=== PATIENT | male | born 1940 | race Caucasian/White ===

== ENCOUNTER 2017-10-28 00:53 | Inpatient (IN) | payer MEDICARE, BC ==
[2017-10-28 01:43] LABS: #Eosinphils 0.1 thou/uL (0.0-0.7); #Lymphocytes 0.8 thou/uL (1.20-3.40); #Monocytes 0.4 thou/uL (0.11-0.59); #Neutrophils 4.2 thou/uL (1.40-6.50); %Basophils 0.5 % (0.0-1.0); %Eosinophils 1.3 % (0.0-10.0); %Monocytes 7.4 % (0.0-10.0); %Neutrophils 76.8 % (42.0-75.0); Hemoglobin 11.9 g/dL (14.0-18.0); Mean Corpuscular HGB CONC 31.2 g/dL (32.0-36.0); Mean Corpuscular Hemoglobin 30.2 pg (27.0-31.0); Mean Platelet Volume 6.9 fL (7.4-10.4); Platelet Count 245 thou/uL (130-400); RBC Distribution Width 13.9 % (11.5-14.5); Red Blood Cell (RBC) Count 3.95 mill/uL (4.70-6.10); White Blood Cell (WBC) Count 5.5 thou/uL (4.8-10.8)
[2017-10-28 01:55] LABS: ALT (SGPT) Less than 7 U/L (8-55); AST (SGOT) 19 U/L (5-34); Albumin 3.5 g/dL (3.4-4.8); Alkaline Phosphatase 56 U/L (40-150); Anion Gap 10 mmol/L (10-20); BUN (Urea Nitrogen) 33 mg/dL (8.4-25.7); Bilirubin, Total 0.3 mg/dL (0.2-1.2); Calc. Creatinine Clearance 0 mL/min (70-130); Calcium 9.4 mg/dL (7.8-10.44); Carbon Dioxide 31 mmol/L (23-31); Chloride 104 mmol/L (98-107); Estimated GFR-MDRD 78; Globulin 2.7 g/dL (2.4-3.5); Glucose 93 mg/dL (83-110); Lipase 18 U/L (8-78); Potassium 3.7 mmol/L (3.5-5.1); Protein, Total 6.2 g/dL (5.8-8.1); Sodium 141 mmol/L (136-145)
[2017-10-28 01:56] LABS: Bilirubin Small (Negative); Blood, Urine Negative (Negative); Clarity CLEAR (Clear); Glucose, Urine (Dipstick) Negative (Negative); Leukocyte Trace (Negative); Nitrite Negative (Negative); Protein, Urine (Dipstick) Trace mg/dL (Neg-Trace); Specific Gravity, Urine 1.029 (1.002-1.036); pH, Urine 5.5 (5.0-9.0)
[2017-10-28 01:59] LABS: Bacteria/HPF 1+ HPF (None Seen); Hyaline Casts/LPF 7-10 HYALINE CAST LPF (0-3 Hyaline); Pathc Cast-AUWi Flag 0.27 (0-2.49); RBC/HPF 0-3 HPF (0-3); Squamous Epithelial 0-3 HPF (0-3)
[2017-10-28] MEDS ORDERED: Ondansetron HCl/PF 4 MG/2 ML Vial ONE (02:40)
[2017-10-28] MEDS ORDERED: Fleet Enema 133 ML BOT PR SCH ×2 (03:30→06:00)
[2017-10-28] MEDS ORDERED: Morphine 4 MG/ML Carpuject ONE (03:56)
[2017-10-28] MEDS ORDERED: Ondansetron ODT 4 MG TAB SL PRN (04:14)
[2017-10-28] MEDS ORDERED: Ondansetron HCl/PF 4 MG/2 ML Vial IVP PRN ×2 (04:14→12:16)
[2017-10-28] MEDS ORDERED: D5 1/2 NS w/20 mEq KCL 1,000 ML IV SCH (04:15)
[2017-10-28 05:39] VITALS: BMI 23.1
[2017-10-28 06:00] LABS: Magnesium 2.5 mg/dL (1.6-2.6); Phosphorus 4.1 mg/dL (2.3-4.7)
--- NOTE | 2017-10-28 08:09 | CT ---
PRELIMINARY REPORT/[facility]/EMERGENCY AFTER HOURS PROCEDURE: Addendum created by Hemanth Paniagua MD on 10/28/2017 2:25 AM Central Time ([place] & [place]) THIS REPORT CONTAINS FINDINGS THAT MAY BE CRITICAL TO PATIENT CARE. The findings were verbally commun icated via telephone conference with Claudio Laguerre at 2:25 AM [employer] on 10/28/2017. The findings were acknowledged and understood. Initial Report created on 10/28/2017 2:19 AM Central Time ([place] & [place]) EXAM: CT Abdomen and Pelvis Without Intravenous Contrast EXAM DATE/TIME: Exam ordered 10/28/2017 1:46 AM CLINICAL HISTORY: 77 years old, male; Pain; Abdominal pain; Generalized TECHNIQUE: Axial computed tomography images of the abdomen and pelvis without intravenous contrast. Coronal reformatted images were created and reviewed. COMPARISON: No relevant prior studies available. FINDINGS: Lower thorax: There is subpleural atelectasis of the dependent portions of the lungs. ABDOMEN: Liver: Normal. Gallbladder and bile ducts: There is no evidence of biliary ductal dilation. No calcified stones. Pancreas: The pancreas is normal. No ductal dilation. Spleen: The spleen is normal. Adrenals: The adrenal glands are normal. Kidneys and ureters: The kidneys are normal. No obstructing stones. No hydronephrosis. Stomach and bowel: There is large air-filled sigmoid colon in the RIGHT upper quadrant with abrupt co llapse suspicious for sigmoid volvulus. There is marked colonic constipation. No small bowel obstruct ion although evaluation is limited without contrast. The stomach is normal. The duodenum is unremarka ble. No mucosal thickening. Appendix: No findings to suggest acute appendicitis. PELVIS: Bladder: The bladder is normal. No stones. Reproductive: Unremarkable as visualized. ABDOMEN and PELVIS: Intraperitoneal space: Normal. No free air. No significant fluid collection. Bones/joints: No acute fracture. No dislocation. Soft tissues: Normal. Vasculature: The vasculature demonstrates diffuse moderate atherosclerotic calcification. No abdomina l aortic aneurysm. Lymph nodes: Normal. No enlarged lymph nodes. IMPRESSION: 1. There is large air-filled sigmoid colon in the RIGHT upper quadrant with abrupt collapse suspiciou s for sigmoid volvulus. Comparison with prior images (not currently available) would be helpful. 2. There is marked colonic constipation. Thank you for allowing us to participate in the care of your patient. Dictated and Authenticated by: Hemanth Paniagua MD 10/28/2017 2:19 AM Central Time ([place] & [place]) FINAL REPORT EMERGENT AFTER HOURS CT ABDOMEN AND PELVIS WITHOUT CONTRAST: COMPARISON: 08/28/13. FINDINGS/IMPRESSION: I agree with the findings given in the preliminary report per [facility] physician. There is a prominent sigmoid colon. However, this is stable compared to prior examination and a sigm oid volvulus is not likely present. There is a large amount of stool in the colon, particularly in t he right colon, transverse colon, and proximal aspect of the left colon. POS: [facility]
--- NOTE | 2017-10-28 10:14 | RAD ---
TWO VIEWS OF THE ABDOMEN: COMPARISON: CT abdomen/pelvis 10/28/17. HISTORY: Constipation. Possible volvulus. FINDINGS: Supine and decubitus views of the abdomen show a moderate amount of stool in the right colon. There is an air fluid level within the sigmoid colon. There are a few other air fluid levels seen in the a bdomen. The small bowel loops are mildly distended and air filled in the abdomen on the supine view. No free air is seen on the decubitus view. IMPRESSION: Persistent moderate stool retention in the right colon. No free air or obvious obstruction is seen a t this time. POS: [facility]
--- NOTE | 2017-10-28 11:31 | HP ---
HISTORY OF PRESENT ILLNESS: Mr. Manuel Jane is a 77-year-old male patient who lives at home with ca regivers. His daughter lives in [place]. The patient has severe Parkinson's with mobility impaired with limited transfer ability requiring assistance. He is mentally sharp. 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 He is DNR. Patient exp erienced abdominal pain, presented in the emergency room, had a CAT scan of the abdomen and pelvis og ggesting changes of possible sigmoid volvulus. My review of the CAT scan reveals that this is a poss ibility, but cannot be completely ruled in or out. Patient reports having had a colon resection in t he past in which there was a twisting. After talking to Dr. Sharma, we talked to his daughter, it ma y have been that he had a right colectomy for cecal volvulus. Patient apparently had some sort of de compression at [facility] in July from below, suspect endoscopic lending want to anne pect he may have an intermittent sigmoid volvulus. Patient has had a PEG tube with a jejunal extensi on for administration of Parkinson's medications and when this did not function well, required evalua tion and laparoscopic assistance for removal. The patient was intubated postprocedural and upset wit iona Santiago, his surgeon such that he said he just left the place. He has received most of his care at [facility] in the past. Dr. Sharma has seen him and after receiving Enemas and rectal exam revealing absence of any significa nt rectal stool and noting abundant stool in his colon descending, he is undergoing endoscopic evalua tion to rule out obstruction. I have talked to him about the possibility of operation should he be f ound at endoscopy to have an obstruction and he is agreeable to laparoscopic or open resection and un derstands possibility of colostomy and understands possibility of postoperative intubation and ventil ation overnight, although I have told him we will minimize this. He understands the risks and benefi ts of the procedure. ALLERGIES: AMANTADINE, CLARITHROMYCIN. TOBACCO: None. ALCOHOL: None. MEDICATIONS: Vitamin E, MiraLax daily, multivitamins daily, melatonin at bedtime, eyedrops each eye at bedtime, aspirin 325 daily, finasteride 5 mg daily, carbidopa/levodopa, Vytorin ER 2 capsules p.o. t.i.d., spironolactone/hydrochlorothiazide daily. PAST MEDICAL HISTORY: Parkinson's, deaf in right ear, hypertension. PAST SURGICAL HISTORY: 1. Tonsillectomy. 2. Adenoidectomy. 3. Cholecystectomy. 4. He had a colon resection, right or left in the past for probably volvulus type problem. 5. Bilateral total knee replacement. 6. He has had a PEG tube extension requiring laparoscopic assisted removal due to complications and twisting. 7. Decompression, recently on July at [facility] for possible volvulus or obstruction of some sort, we do not have the records. REVIEW OF SYSTEMS: Ten point noncontributory except as noted above. PHYSICAL EXAMINATION: VITAL SIGNS: 70 kilograms, 97.5, 71, 18, 143/89. HEENT: Unremarkable. LUNGS: Clear to auscultation. CARDIAC: Regular rate and rhythm without murmur or gallop. ABDOMEN: Soft, slightly distended, tympanitic, but no guarding. EXTREMITIES: Unremarkable. LABORATORY DATA: White count 5, hemoglobin 11.9, sodium 141, BUN 33, creatinine 0.94. Liver functio n tests normal. ASSESSMENT AND PLAN: 1. Severe constipation, slight possibility of volvulus, although I think this is unlikely. We will obtain abdominal x-rays today and await Dr. Sharma finding on endoscopy. I have talked to him about being prepared for a colon resection, laparoscopic or open. We talked about postoperative ventilatio n if necessary, but I think that this be unlikely. Patient states that he wants to be a DNR, does no t want intubation or CPR. We will discuss that with nursing and order that. 2. Severe Parkinson's. 3. Right ear deafness. 4. Severe constipation.
[2017-10-28] MEDS ORDERED: Fentanyl 100 MCG/2 ML VIAL ONE (11:53)
[2017-10-28] MEDS ORDERED: Midazolam HCl 2 mg/2 ml Vial ONE (11:53)
[2017-10-28] MEDS: Sodium Chloride 0.9% 1,000 ML IV SCH ×2 (13:20→20:20)
[2017-10-28] MEDS: Polyethylene Glycol 3350 17 GM Packet PO SCH ×2 (15:17→20:18)
--- NOTE | 2017-10-28 15:55 | HP ---
DATE OF ADMISSION: 10/28/2017 TIME OF SERVICE: 0730 PRIMARY CARE PHYSICIAN: Dr. Carl Renee. CHIEF COMPLAINT: Abdominal pain. HISTORY OF PRESENT ILLNESS: Mr. Jane is a 77-year-old white male with history of Parkinson's diseas e, hypertension, dementia, BPH and GERD as well as coronary artery disease, diverticulosis, and hyper lipidemia who presented to the emergency department for yet another episode of abdominal pain. The patient has a history of sigmoid volvulus some 2 years ago that was surgically corrected. Since that time, he has had regular episodes of functional constipation and severe abdominal pain. He presented to the emergency department for evaluation of 2 days of abdominal pain. His last visit to the hospital was about 2-3 months ago at [facility]. At that time he had the same issue and was decompressed by Surgery [facility] Gastroenterology with a scope and did well. His last bowel movement he said was 2 days ago. He said he was passing gas overnight to some extent, but has had increasing pain over the last 2 days. No fevers or chills, no chest pain or shortness of breath, no nausea and vomiting. PAST MEDICAL HISTORY: 1. Parkinson's disease. 2. Hypertension. 3. Dementia, vascular. 4. BPH. 5. Chronic diarrhea. 6. Coronary artery disease. 7. Diverticulosis. 8. Bilateral lower extremity venous stasis. 9. Hyperlipidemia. 10. GERD. PAST SURGICAL HISTORY: 1. Partial colectomy 2-3 years ago. 2. Appendectomy in 2012. 3. Cholecystectomy in 2004. 4. Bilateral TKA in 2008. HOME MEDICATIONS: 1. Aldactazide 25/25 one p.o. daily. 2. Sucralfate his caregivers says he is not on anymore. 3. Pramipexole 0.125 mg p.o. t.i.d. 4. Donepezil 5 mg p.o. at bedtime. 5. Carbidopa/levodopa 50/200 two tablets p.o. t.i.d. 6. Finasteride 5 mg p.o. at bedtime. ALLERGIES: AMANTADINE, BIAXIN, IODINE CONTRAST and POLYSPORIN. FAMILY HISTORY: Negative for clotting or bleeding disorder, no immune dysfunction likely noncontribu tory in this 77-year-old. SOCIAL HISTORY: Negative for habits x3. He lives at home with a caregiver. REVIEW OF SYSTEMS: A 10-point review of systems was performed, negative for all other systems except as stated per HPI. Interestingly, when some woman's clothing was found in the room, presumably left from the last patient, the patient said that he was actually dressing like a woman these days. PHYSICAL EXAMINATION: VITAL SIGNS: Temperature on arrival 98.4, pulse 81, blood pressure 160/83, respiratory rate 18, satt ing 97% on room air. Vital signs now are unchanged. GENERAL: He is awake. He is alert. He is oriented x3. He is elderly frail looking white gentleman who appears to be in no acute distress. HEENT: Normocephalic, atraumatic. Pupils are equal, round, reactive to light bilaterally, mucous me mbranes moist. There are no visible lesions or thrush. NECK: Supple, with no lymphadenopathy, no JVD, no thyromegaly. He has a slightly delayed carotid up stroke. I do not appreciate bruits. LUNGS: Clear to auscultation bilaterally. Good air movement. Symmetrical chest excursion. He has no prolonged expiratory phase. No wheezes or rales. No retractions. CARDIOVASCULAR: He is regular. I hear a 2/6 systolic ejection murmur at the right sternal border. There are no diastolic murmurs. He has no rubs heard. ABDOMEN: Soft, slightly distended. He is nondistended. He has no rebound, rigidity, or guarding. He has normoactive bowel sounds present in all 4 quadrants. SKIN: Warm, moist and well perfused. He has no rashes, no lesions. He has palpable pulses in the d orsalis pedis and posterior tibial arteries bilaterally. NEUROLOGIC: Cranial nerves II-XII are grossly intact. He has no focal deficits. MUSCULOSKELETAL: Normal to inspection. Large joints appear uninflamed and no palpable effusions. LABORATORY DATA AND IMAGING DATA: 1. Sodium 141, potassium 3.7, chloride 104, bicarbonate 31, BUN 33, creatinine 0.94, calculated GFR is 178. Calcium 9.4, magnesium 2.5 and phosphorus of 4.1 with glucose of 93. 2. Lactic acid was normal at 0.5, lipase is 18. Urinalysis largely unremarkable. Does have some ba cteria and 11-20 white cells, but no symptoms. 3. Liver function is normal. 4. CBC showed white count of 5.5, hemoglobin 11.9, hematocrit 38.3, and platelet count is 221,000. 5. CT scan of the abdomen and pelvis showed sigmoid region colonic dilation and I could not exclude volvulus. There is a large amount of stool throughout the colon. ASSESSMENT AND PLAN: 1. Volvulus versus constipation. The patient was admitted for volvulus. General Surgery was initia lly called by the ER; however, Dr. Pal asked him to call Dr. Sharma to see if he could be reduced endoscopically first. Both are aware and are on the case. Since seen the patient and prior to this dictation, I did have a chance to speak with Dr. Sharma. He feels this is just a functional constipa tion. He had the same thing happening at [facility] [place] and decompression. He is going to tr y to get him decompressed this afternoon. 2. Parkinson's disease. Resume medications once not n.p.o. 3. Hypertension, controlled at present. Restart his medicines when he is not n.p.o. 4. Dementia, stable. 5. Benign prostatic hypertrophy. We will restart finasteride. 6. Chronic diarrhea. 7. Coronary artery disease without angina. 8. Diverticulosis without evidence of diverticulitis.
[2017-10-28] MEDS ORDERED: Propofol 200 MG/20 ML VIAL ONE (16:02)
--- NOTE | 2017-10-28 16:30 | CON ---
DATE OF CONSULTATION: 10/28/2017 HISTORY OF PRESENT ILLNESS: Mr. Jane is a 77-year-old gentleman who presented to the emergency room with complaints of abdominal pain with 2 days of constipation. His last bowel movement has been two days prior. In the emergency room, a CAT scan was performed which revealed impaction to the right c olon and some dilated sigmoid colon. The radiologist last night thought possibly there was some volv ulus. He has had two enemas the nurse reports have been productive and he states his pain is better. In talking with him and his daughter, it seems that he has had quite a few GI issues recently, all of which have been taken care of at [facility]. Two years ago, part of his colon removed at which t berenice he also has appendix removed for a twisted bowel. He is unclear if this was volvulus, he is uncl ear if this was the right or left side. Back in July, he had a PEG tube placed for delivery of on e of his Parkinson's medicines. Apparently, there were problems with this and he ultimately wanted t o remove, for some reason it could not be removed in the office. In the interim, he presented with w hat was felt to be sigmoid volvulus per his daughter and he had endoscopic decompression and under th at same anesthetic had his PEG tube removed. It is unclear if this was removed surgically. The gabby hter notes that he has had several episodes requiring endoscopic decompression. She is not sure if t hese were volvulus or just constipation, but she seems to think they have been volvulus. The most re cent was just a few weeks ago at [facility]. Presently, the patient is without pain. REVIEW OF SYSTEMS: Negative for chest pain, shortness of breath, vomiting, fever, bleeding, dyspnea on exertion. PAST MEDICAL HISTORY: Parkinson disease, hypertension. He has decreased hearing in the right ear. He has had a GI bleed in the past at this hospital, but he had a colonoscopy just before that therefo re colonoscopy was not repeated. PAST SURGICAL HISTORY: Colon resection in 2012, appendectomy in 2012. Cholecystectomy, he reports i n 2004. Orthopedic surgery, bilateral knees, PEG tube, multiple colon decompressions, most recently 2 weeks ago at [facility]. SOCIAL HISTORY: The patient lives at home with caretakers. ALLERGIES: BIAXIN, POLYSPORIN. Other allergies per the admission notes; AMANTADINE, IODINE CONTRAST , BACITRACIN. MEDICATIONS: Presently; normal saline at 110 an hour, Zofran p.r.n. HOME MEDICATIONS: , polyethylene glycol, multivitamin, melatonin, pantoprazole, aspirin, finast eride, carbidopa and Aldactazide. PHYSICAL EXAMINATION: VITAL SIGNS: Temperature is 97, pulse 71, blood pressure 143/89. GENERAL: The patient has slight tremor. He is alert and oriented to person, place, and time. He is in no distress. LUNGS: Clear. HEART: Regular rate and rhythm without clicks or murmurs. ABDOMEN: Soft and nontender. There is no rebound. There is no guarding. It is not real distended. RECTAL: Examination reveals nothing in the vault at this time. LABORATORY STUDIES: White count 5.5, hemoglobin 11.9, platelet count 245. Electrolytes are all norm al. BUN and creatinine are 33 and 0.94. Liver function tests are normal. Radiology films, CAT scan was reviewed with Radiology. They do not feel there was volvulus, they feel that there is some stoo l in the rectum, that there was distended sigmoid colon about 8 cm, and there was large fecal impacti on in the proximal, transverse, and right colon. ASSESSMENT: At this time, it is unclear if the patient has volvulus. He probably does not, but he h as had volvulus in the past according to the daughter and I think the better part of bowel would be t o decompress him. If there is no overt volvulus, my feeling is this is more of an issue with recurre nt constipation related to his Parkinson's medications. He is on minimal laxatives, just MiraLax at home. My recommendation would be for him to be started on enema, probably every other day and also D ulcolax daily. He can follow up with his primary physician and neurologist at [facility]. We timothy nj perform with a sigmoidoscopy today and make sure it is not volvulus. If there is, we will consult General Surgery for definitive therapy after he is decompressed. These issues and plan discussed wit h patient and his daughter. His daughter is in [place], this was done over the phone.
--- NOTE | 2017-10-28 18:49 | OP ---
PROCEDURE PERFORMED: Flexible sigmoidoscopy. ANESTHESIA: TIVA. PREPROCEDURE DIAGNOSES: 1. Obstipation with distended sigmoid colon, questionable prior history of volvulus. 2. Prior history of surgical resections. POSTPROCEDURE DIAGNOSES: 1. Anastomosis in the superior rectum with descending colon patent. 2. Colon about 10 cm above this is normal and then above that is distended with air and gas and stoo l, no signs of volvulus. RECOMMENDATIONS: 1. Daily laxatives with MiraLax and Senokot and daily to every other day enemas. 2. If patient continues to have problems with constipation, strong consideration should be given to discontinuing or decreasing his parkinsonian medications. PROCEDURE IN DETAIL: After the patient was informed of the risks, benefits, possible complications o f endoscopy including perforation, bleeding, reactions to medication and aspiration, informed consent was obtained from the patient's daughter via the phone. The patient brought to endoscopy suite wher e he was sedated. A digital exam was normal. The rectum was empty. The endoscope was advanced to t he proximal rectum with anastomosis the colon above it, this was a healthy anastomosis. The scope wa s already advanced beyond this into a normal diameter of colon for about 5-10 cm, then above this, th e colon was dilated with air, gas and stool. There were no signs of twisting mucosa or volvulus. Th e scope was then removed after desufflating and the patient brought to recovery room in stable condit ion.
[2017-10-28] MEDS: Senokot S 8.6-50 MG TAB PO SCH (20:18)
[2017-10-28] MEDS: Famotidine/PF 20 mg/2ml Vial SLOW IVP SCH (20:18)
[2017-10-28] MEDS ORDERED: Latanoprost 0.005% Ophth Soln 2.5 ml Bottle EA EYE SCH (21:00)
[2017-10-29 05:46] LABS: Magnesium 2.1 mg/dL (1.6-2.6); Phosphorus 3.3 mg/dL (2.3-4.7)
[2017-10-29] MEDS: Sodium Chloride 0.9% 1,000 ML IV SCH (08:40)
[2017-10-29] MEDS ORDERED: Fleet Enema 133 ML BOT PR SCH (09:00)
[2017-10-29] MEDS: Polyethylene Glycol 3350 17 GM Packet PO SCH ×2 (10:03→15:16)
[2017-10-29] MEDS: Famotidine/PF 20 mg/2ml Vial SLOW IVP SCH (10:03)
[2017-10-29] MEDS: Senokot S 8.6-50 MG TAB PO SCH (10:03)
[2017-10-29] MEDS ORDERED: cefTRIAXone\\ROCEPHIN 1 GM in Sodium Chloride 0.9% 100 ML IVPB SCH (10:45)
--- NOTE | 2017-10-29 11:06 | PRG ---
DATE OF SERVICE: 10/29/2017 Mr. Jane feels better today. He has no abdominal pain. He underwent a sigmoidoscopy yesterday with no signs of volvulus. He is passing gas, he had a small bowel movement, he is eating, no nausea, no pain. PHYSICAL EXAMINATION: VITAL SIGNS: Temperature is 97, pulse 72, blood pressure 152/83. ABDOMEN: Soft, slightly protuberant, but nontender. No hernias noted. Bowel sounds positive. LABORATORY: None today. ASSESSMENT: Chronic obstipation with history of possible volvulus recurrent in the past at [facility]. He had a sigmoid resection seemingly by the anatomy at the time of sigmoidoscopy yesterday. At the time of his endoscopy, there was no volvulus. There was copious amounts of stool in the righ t colon. There was some distention of the sigmoid colon. The anastomosis was without stricturing, b ut the lumen above the anastomosis about 5 cm was decompressed. I think this is more of a motility i ssue, although I do not have his records from [facility] or previous films to evaluate. RECOMMENDATIONS: Senokot b.i.d., MiraLax b.i.d. and enema every other day. If he truly were to be h aving recurrent volvulus or presents here with a true volvulus, it may be that he had not enough sigm oid colon resected, although I would really try to manage this medically rather than more surgery in light of his advanced age, Parkinson's and other comorbidities.
[2017-10-29 11:13] LABS: Anion Gap 12 mmol/L (10-20); BUN (Urea Nitrogen) 15 mg/dL (8.4-25.7); Calc. Creatinine Clearance 76 mL/min (70-130); Calcium 8.1 mg/dL (7.8-10.44); Carbon Dioxide 25 mmol/L (23-31); Chloride 106 mmol/L (98-107); Estimated GFR-MDRD Greater than 90; Glucose 141 mg/dL (83-110); Potassium 3.6 mmol/L (3.5-5.1); Sodium 139 mmol/L (136-145)
[2017-10-29 11:19] LABS: Troponin I 0.018 ng/mL (< 0.028)
[2017-10-29] MEDS ORDERED: cefTRIAXone\\ROCEPHIN 1 GM, Syringe 0.4 ML in Sterile Water 9.6 ML SLOW IVP SCH (12:00)
--- NOTE | 2017-10-29 14:31 | RAD ---
TWO VIEW ABDOMEN: TECHNIQUE: Supine and left decubitus views obtained. HISTORY: Abdominal pain. COMPARISON: Comparison is made to recent abdominal films of 10/28/17. FINDINGS: Prominent stool is seen in the right colon and transverse colon. There continues to be a significantly dilated gas-filled loop of sigmoid colon in the lower abdomen w hich does not appear significantly changed from yesterday's CT dated 10/28/17. No free air identified on the left decubitus view. IMPRESSION: No significant change in the bowel gas pattern when compared to yesterday's CT scan. POS: [facility]
[2017-10-29 17:15] VITALS: BP 146/85; TEMP 98.6
[2017-10-30] MEDS ORDERED: Saccharomyces boulardii 250 MG CAP PO SCH (09:00)
--- NOTE | 2017-10-30 10:10 | DIS ---
DATE OF DISCHARGE: 10/29/2017 DISCHARGE DISPOSITION: Home with caregivers. ALLERGIES: Patient is allergic to BACITRACIN, POLYMYXIN, IV DYE, CLARITHROMYCIN, AMANTADINE. INPATIENT CONSULTANTS: General surgery, Dr. Pal; Gastroenterology, Dr. Sharma. FOLLOWUP: Follow up with primary care physician, Dr. Carl Renee in 1 week. Follow up at [facility] in 2 weeks. The patient was seen and examined on the day of discharge, denies any new complaints. Abdominal pain is resolving. VITAL SIGNS: His vital signs on the day of discharge showed temperature 98.6 with a pulse rate of 85 , blood pressure 137/87, respiration of 16, O2 saturation 96% on room air. GENERAL: Patient in no apparent distress. LUNGS: Essentially clear to auscultation bilaterally. HEART: S1, S2 present. ABDOMEN: Soft, mild generalized tenderness. Bowel sounds are present. His abdominal tenderness has significantly improved. SIGNIFICANT LABORATORY: 1. CBC showed WBC 5.5 with hemoglobin 11.9, hematocrit 38.3, platelet 245. Chemistries showed sodiu m of 139, potassium 3.6, chloride 106, bicarbonate 25, BUN 15, creatinine of 0.79. His BUN on admiss ion was 33. 2. Troponins were negative. LFTs in normal range. Magnesium, phosphorus in normal range. 3. Urinalysis showed 11-20 WBCs with 1+ bacteria. Urine culture showed E. coli sensitivity positive to Bactrim. 4. CT scan of the abdomen and pelvis on admission showed large air filled sigmoid colon in the right upper quadrant with abrupt collapse suspicious for sigmoid volvulus with marked colonic constipation . KUB on the day of discharge was negative for significant change. INPATIENT PROCEDURES: On 10/28/2017 the patient underwent flexible sigmoidoscopy that was consistent with normal colon above the anastomosis in the superior rectum with descending colon patent. About this, there was distended with air and gas and stool without any sign of volvulus. Daily laxative wi th MiraLax and Senokot with every other day enema was recommended. BRIEF HOSPITAL COURSE: The patient is a 77-year-old male with Parkinson disease who presented to the hospital with abdominal pain. Please refer to the history and physical dated 10/28/2017 for further details. The patient was admitted to the hospital with the diagnosis of abdominal discomfort, probably seconda ry to severe constipation with possible volvulus. A flexible sigmoidoscopy was performed by Dr. Jenny alexandra that was negative for volvulus. His colonic distention is probably secondary to severe constipati on. He was started on enemas along with MiraLax and Senokot. His abdominal pain has improved. The patient was evaluated by Gastroenterology, Dr. Sharma today. Dr. Sharma his recommended the patient to be discharged and a bowel regimen with Senokot and MiraLax twice a day with enema every other day was recommended. He was advised to follow up with GI Clinic as outpatient. The plan of care was dis cussed with the patient and the family in detail, they stated understanding. FINAL DIAGNOSES: 1. Abdominal discomfort secondary to severe constipation. Volvulus ruled out. 2. Parkinson disease. If his problem continues, his Parkinson medication needs to be adjusted per G I. Primary care physician is advised to follow. 3. Hypertension. 4. Dementia. 5. Benign prostatic hypertrophy. 6. Chronic diarrhea. 7. Coronary artery disease. 8. Diverticulosis. DISCHARGE MEDICATIONS: 1. Bactrim 1 tablet b.i.d. #10 (new medication for UTI). Other home medications were resumed incl uding aspirin 325 mg daily, carbidopa/levodopa 36.25 2 capsules 3 times a day. 2. Finasteride 5 mg daily. 3. Latanoprost 1 drop in each eye at bedtime. 4. Melatonin 4 mg at bedtime. 5. Multivitamin 1 tablet daily. 6. MiraLax twice a day. 7. Senokot-S 2 tablets twice a day. 8. Fleet enema every other day. 9. Spironolactone/hydrochlorothiazide 25/25 one tablet daily. 10. Vitamin E 400 units daily. Total time coordinating the discharge of this patient was 37 minutes.
--- NOTE | 2017-10-30 23:39 | EKG ---
Test Reason : Blood Pressure : / mmHG Vent. 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
== END 2017-10-29 18:37 | disposition home or self-care (01) | DRG 392 ==
LOC: ERS 00:53 → T4-B 02:49
PROVIDERS: ADMIT Internal Medicine; ATTEND Internal Medicine
PROC: 0DJD8ZZ Inspection of Lower Intestinal Tract, Via Natural or Artificial Opening Endoscopic (ICD-10-PCS; principal; 2017-10-28)
DX: K59.04 Chronic idiopathic constipation (principal); G20 Parkinson's disease; F03.90 Unspecified dementia, unspecified severity, without behavioral disturbance, psychotic disturbance, mood disturbance, and anxiety; I10 Essential (primary) hypertension; N40.0 Benign prostatic hyperplasia without lower urinary tract symptoms; K21.9 Gastro-esophageal reflux disease without esophagitis; I25.10 Atherosclerotic heart disease of native coronary artery without angina pectoris; K57.90 Diverticulosis of intestine, part unspecified, without perforation or abscess without bleeding; E78.5 Hyperlipidemia, unspecified; K52.9 Noninfective gastroenteritis and colitis, unspecified; Z90.49 Acquired absence of other specified parts of digestive tract; Z88.8 Allergy status to other drugs, medicaments and biological substances; Z91.041 Radiographic dye allergy status; Z66 Do not resuscitate; Z96.653 Presence of artificial knee joint, bilateral; T50.995A Adverse effect of other drugs, medicaments and biological substances, initial encounter
CPT/HCPCS: 36415; 74019; 74176; 80048; 80053; 81003; 81015; 83605; 83690; 83735; 84100; 84484; 85025; 87077; 87086; 87186; 93005; 93010; 96361; 96374; 96375; A4216; J0696; J2250; J2270; J2405; J2704; J3010; S0028

== ENCOUNTER 2017-11-21 00:26 | Inpatient (IN) | payer MEDICARE, BC ==
[2017-11-21] MEDS ORDERED: Benzocaine 20% Spray 60 ML CAN ONE (01:25)
[2017-11-21 02:15] LABS: #Lymphocytes 0.5 thou/uL (1.20-3.40); #Monocytes 0.4 thou/uL (0.11-0.59); #Neutrophils 9.9 thou/uL (1.40-6.50); %Basophils 0.1 % (0.0-1.0); %Eosinophils 0.1 % (0.0-10.0); %Lymphocytes 4.4 % (21.0-51.0); %Monocytes 3.7 % (0.0-10.0); %Neutrophils 91.7 % (42.0-75.0); Hemoglobin 14.9 g/dL (14.0-18.0); Mean Corpuscular HGB CONC 32.3 g/dL (32.0-36.0); Mean Corpuscular Hemoglobin 30.4 pg (27.0-31.0); Mean Platelet Volume 7.7 fL (7.4-10.4); Platelet Count 297 thou/uL (130-400); RBC Distribution Width 13.6 % (11.5-14.5); White Blood Cell (WBC) Count 10.8 thou/uL (4.8-10.8)
[2017-11-21 02:29] LABS: ALT (SGPT) Less than 7 U/L (8-55); AST (SGOT) 23 U/L (5-34); Albumin 4.1 g/dL (3.4-4.8); Alkaline Phosphatase 73 U/L (40-150); Anion Gap 17 mmol/L (10-20); BUN (Urea Nitrogen) 37 mg/dL (8.4-25.7); Bilirubin, Total 0.4 mg/dL (0.2-1.2); Calc. Creatinine Clearance 0 mL/min (70-130); Calcium 10.8 mg/dL (7.8-10.44); Carbon Dioxide 27 mmol/L (23-31); Chloride 98 mmol/L (98-107); Estimated GFR-MDRD 62; Globulin 3.4 g/dL (2.4-3.5); Glucose 152 mg/dL (83-110); Lipase 27 U/L (8-78); Potassium 4.3 mmol/L (3.5-5.1); Protein, Total 7.5 g/dL (5.8-8.1); Sodium 138 mmol/L (136-145)
[2017-11-21] MEDS ORDERED: Fentanyl 100 MCG/2 ML VIAL ONE ×2 (02:36→03:20)
[2017-11-21] MEDS ORDERED: Ondansetron HCl/PF 4 MG/2 ML Vial ONE (02:36)
[2017-11-21] MEDS ORDERED: Lidocaine Viscous Sol 2% 15 ml UD Cup ONE (03:00)
[2017-11-21 05:17] VITALS: BMI 24.7
[2017-11-21] MEDS ORDERED: Ondansetron HCl/PF 4 MG/2 ML Vial IVP PRN ×2 (05:17→10:21)
[2017-11-21] MEDS ORDERED: Sodium Chloride 0.9% 1,000 ML IV SCH (05:17)
[2017-11-21] MEDS ORDERED: Ondansetron ODT 4 MG TAB SL PRN (05:17)
[2017-11-21] MEDS ORDERED: Acetaminophen 325 MG TAB PO PRN (05:17)
[2017-11-21] MEDS ORDERED: Prevnar 13-Val Conj/PF 0.5 ML SYRINGE IM ONE (06:45)
[2017-11-21] MEDS ORDERED: FLU VACC TS2017-18 (>65YR) 0.5 ML SYRINGE IM ONE (06:45)
--- NOTE | 2017-11-21 07:47 | CT ---
PRELIMINARY REPORT/[facility]/EMERGENCY AFTER HOURS PROCEDURE: EXAM: CT Abdomen and Pelvis Without Intravenous Contrast EXAM DATE/TIME: Exam ordered 11/21/2017 2:01 AM CLINICAL HISTORY: 77 years old, male; Pain; Abdominal pain; Generalized; Prior surgery; Patient HX: Patient is a 77 yea r old male with parkinson's disease with recent hospitalization for severe constipation who presents with abdominal pain. He has a past history of partial colectomy for cecal volvulus. TECHNIQUE: Axial computed tomography images of the abdomen and pelvis without intravenous contrast. Coronal reformatted images were created and reviewed. COMPARISON: CT Abdomen Pelvis WO Con 2017-10-28 01:46 FINDINGS: Lower thorax: No acute findings. ABDOMEN: Liver: The liver is within normal limits for this noncontrast study. Gallbladder and bile ducts: There has been a cholecystectomy. No ductal dilation. Pancreas: The pancreas appears normal. No ductal dilation. Spleen: The spleen is normal. Adrenals: Normal. No mass. Kidneys and ureters: The kidneys appear normal. No obstructing stones. No hydronephrosis. Stomach and bowel: There is dilatation of the small bowel up to 5.6 cm with abrupt collapse in the mi d abdomen (series 2, image 52) consistent with high grade small bowel obstruction, increased from isidro or. There is moderate colonic constipation. Patient is post partial colonic resection. The stomach is decompressed. Appendix: No findings to suggest acute appendicitis. PELVIS: Bladder: The bladder is normal. No stones. Reproductive: The prostate gland and seminal vesicles are normal. ABDOMEN and PELVIS: Intraperitoneal space: Normal. No free air. No significant fluid collection. Bones/joints: No acute fracture. No dislocation. Soft tissues: Normal. Vasculature: Normal. No abdominal aortic aneurysm. Lymph nodes: Normal. No enlarged lymph nodes. Tubes, lines and devices: A nasogastric tube lies with its tip in the stomach. IMPRESSION: There is marked dilatation of the small bowel up to 5.6 cm with abrupt collapse in the mid abdomen co nsistent with high grade small bowel obstruction, increased from prior. Thank you for allowing us to participate in the care of your patient. Dictated and Authenticated by: Hemanth Paniagua MD 11/21/2017 2:20 AM Central Time ([place] & [place]) FINAL REPORT CT ABDOMEN AND PELVIS WITHOUT CONTRAST: Date: 11/21/17 FINDINGS/IMPRESSION: I agree with the preliminary report given by Dr. Hemanth Paniagua of [facility]. POS: [facility]
--- NOTE | 2017-11-21 08:30 | RAD ---
ABDOMEN ONE VIEW: History: Abdominal pain. Comparison: Earlier exam, same day. FINDINGS: Marked gaseous distension of the abdomen is again noted. Interval placement of an NG tube is within t he fundus of the stomach. IMPRESSION: Placement of an NG tube with the tip in the fundus of the stomach. POS: [facility]
--- NOTE | 2017-11-21 08:32 | RAD ---
CHEST ONE VIEW: History: Abdominal pain, dyspnea. Comparison: 07-24-15 FINDINGS: Cardiac silhouette is magnified by projection. Pulmonary vasculature is upper limits of normal and ac centuated by shallow inspiration. Mediastinum is midline with aortic calcifications. Nasogastric tube is coiled within the stomach. No evidence of pneumothorax. There is gaseous distention of bowel with in the partially visualized upper abdomen. Destructive changes of the right humeral head have develop ed since the previous exam. IMPRESSION: 1. Borderline pulmonary vascular congestion. 2. Nasogastric tube is good radiographic position. 3. Destructive, probably arthritic changes of the right humeral head. POS: [facility]
--- NOTE | 2017-11-21 08:39 | RAD ---
ABDOMEN ONE VIEW: History: Abdomen pain. Comparison: 11-17-11 FINDINGS: There is marked gaseous distention of the small bowel up to 5 cm. Some stool is apparent within the r ight upper quadrant, although gas is not reliably demonstrated in the colon. Eggshell calcification projecting over the left mid abdomen could be vascular in origin or represent bowel content. IMPRESSION: Gaseous distention of the small bowel. Obstruction must be considered. POS: [facility]
--- NOTE | 2017-11-21 08:49 | RAD ---
CHEST 1 VIEW AND ABDOMEN 2 VIEWS: Date: 11/21/17 HISTORY: Small bowel obstruction. FINDINGS: The heart size is normal. There are mild infiltrates versus atelectatic changes at the lung bases. A nasogastric tube is present in the stomach. No free air is seen. The small bowel loops are dilated wi th differential air fluid levels. IMPRESSION: Findings are consistent with small bowel obstruction. POS: [facility]
[2017-11-21] MEDS ORDERED: Dextrose 5% in Water 1,000 ML IV PRN (10:21)
[2017-11-21] MEDS ORDERED: Dextrose 50% Abboject 50 ML SYRINGE SLOW IVP PRN (10:21)
[2017-11-21] MEDS ORDERED: Ondansetron ODT 4 MG TAB PO PRN (10:21)
[2017-11-21] MEDS ORDERED: hydrALAZINE 20 MG/ML VIAL SLOW IVP PRN (10:21)
[2017-11-21] MEDS: Lactated Ringer's 1,000 ML IV SCH ×2 (11:58→20:01)
--- NOTE | 2017-11-21 14:49 | HP ---
HISTORY OF PRESENT ILLNESS: Mr. Manuel Jane is a 77-year-old male who lives at home with sitters. Patient's daughter lives in [place]. Patient is a retired adjunct professor and guidance counselor . He has sitters at home to help him day and night. He has severe Parkinson's and dementia. He his torically does not do well in the hospital. He is a DNR status. This is the patient's third admissi on since July for abdominal distention. Recent admission, patient had distention and CAT scans go ggest a volvulus. Further evaluation; however, revealed this not be true. Dr. Sharma performed a fl exible sigmoidoscopy and there was no evidence of a volvulus, just distended colon. Patient has had a laparoscopic sigmoid colon resection for a sigmoid volvulus in the past. It is recommended by [facility] roenterology last hospitalization that his progress with medication should be addressed. It was thou ght this might be causing his decrease colonic and small-bowel transit. The patient apparently had b een doing well at home until yesterday when he developed acute nausea, vomiting and distention. He w as brought to the emergency room and in the emergency room he underwent a CAT scan of the abdomen and pelvis revealing significant stool in the colon and in addition, markedly distended small bowel loop s with distal decompression consistent with a partial obstruction or complete obstruction. The patie nt had repeat abdominal x-rays plain films this morning revealing the same. On admission, his white count is 10 and hemoglobin 14. Basic metabolic profile essentially normal with mild elevation of his BUN, but creatinine is 1.14, glucose 152 and calcium 10.8. ALLERGIES: AMANTADINE, CLARITHROMYCIN, BIAXIN, IODINE CONTRAST and POLYSPORIN. TOBACCO: None. ALCOHOL: None. MEDICATIONS AT HOME: Carbidopa and levodopa 2 capsules t.i.d., aspirin 325 mg daily, melatonin 4 mg at bedtime, latanoprost eyedrops 0.05% each eye at bedtime, finasteride 5 mg a day, Fleet Enema p.r.n ., docusate 2 tablets b.i.d., MiraLax b.i.d., multivitamins daily, vitamin E 400 units daily and [place] ctazide 1 tablet p.o. daily. PAST MEDICAL HISTORY: Parkinson disease, dementia. He has trouble with sundowning in the past, hype rtension, BPH, stable coronary artery disease, diverticulosis, chronic venous stasis, hyperlipidemia and GERD. PAST SURGICAL HISTORY: Laparoscopic sigmoid colon resection 3 years ago for sigmoid volvulus, append ectomy, cholecystectomy and bilateral total knee replacement in 2008. PHYSICAL EXAMINATION: VITAL SIGNS: Temperature 97.6, heart rate 91, respirations 20 and 96% saturation. HEENT: Unremarkable. NG tube in place. LYMPH: Neck, groins, axilla without masses. LUNGS: Clear to auscultation. CARDIAC: Regular rate and rhythm without murmur or gallop. ABDOMEN: Soft, distended and nontender. No bowel sounds. EXTREMITIES: Unremarkable. LABORATORY AND IMAGING DATA: White count 10, hemoglobin 14. Comprehensive metabolic profile unremar kable. Total x-ray as noted above. CAT scan as described above. ASSESSMENT AND PLAN: 1. Acute onset of nausea and vomiting yesterday. The patient has had 120 mL of feculent smelling ou tput from his NG tube overnight. He went down for abdominal x-rays today and upon returning, he had an episode of emesis. NG tube was hooked back to suction and had 250 mL out. Patient is somnolent t his morning, sleepy, but does respond to voice and follows commands. Patient is a DNR. I have spoke n per telephone with his daughter. She will be here this weekend to visit him. Situation was explai vi to the daughter. She reminds us that this is the third episode requiring admission for abdominal distention since July. I have informed her that the last admission seemed to be more of a coloni c ileus with this episode. CAT scan suggests a transition point in the small bowel. This may be a b owel obstruction, although he does not have any active bowel sounds, which might be more consistent w ith an ileus. At this point, patient has had problems leaving his NG tube overnight and a sitter at his side was not engaged enough to assure the NG tube would not be removed and soft restraints were i n place. Today, sitter is Sarah, who has been with the patient for many years and is engaged and has talked to the patient and soft restraints have been removed and so far the patient has not tried to remove his NG tube. I spoke with the patient's daughter and she is agreeable to use soft restrain ts at night; however, he seems to have the most problems with confusion related to his dementia. Justin n at this time is to repeat abdominal x-rays and labs tomorrow, small bowel follow through tomorrow. Should the patient require operation for bowel obstruction, the patient's daughter is opened for dis cussions to intervene to help his quality of life if necessary. 2. Parkinson's. 3. Benign prostatic hypertrophy. 4. Dementia. 5. Prior operations for cholecystectomy, appendectomy, laparoscopic sigmoid resection for volvulus t hree years ago. Patient had a feeding tube in place into the small bowel and there was difficulty re moving requiring an operation at Dr. Jack Larson. The patient has expressed dissatisfactio n with care there and with feeding tube and stent.
[2017-11-21] MEDS: Acetaminophen 1,000 MG in Premix Bag 1 BAG IVPB PRN (17:49)
[2017-11-21] MEDS: Famotidine/PF 20 mg/2ml Vial SLOW IVP SCH (20:01)
[2017-11-21] MEDS: Enoxaparin Sodium 40 MG/0.4 ML SYRINGE SC SCH (20:01)
[2017-11-22 06:04] LABS: #Lymphocytes 0.7 thou/uL (1.20-3.40); #Monocytes 0.3 thou/uL (0.11-0.59); #Neutrophils 2.6 thou/uL (1.40-6.50); %Basophils 0.1 % (0.0-1.0); %Eosinophils 0.5 % (0.0-10.0); %Lymphocytes 18.2 % (21.0-51.0); %Monocytes 8.2 % (0.0-10.0); %Neutrophils 72.9 % (42.0-75.0); Hemoglobin 12.2 g/dL (14.0-18.0); Mean Corpuscular HGB CONC 31.8 g/dL (32.0-36.0); Mean Corpuscular Hemoglobin 29.8 pg (27.0-31.0); Mean Corpuscular Volume 93.7 fl (80.0-94.0); Mean Platelet Volume 7.8 fL (7.4-10.4); Platelet Count 249 thou/uL (130-400); RBC Distribution Width 13.8 % (11.5-14.5); Red Blood Cell (RBC) Count 4.09 mill/uL (4.70-6.10); White Blood Cell (WBC) Count 3.6 thou/uL (4.8-10.8)
[2017-11-22 06:30] LABS: ALT (SGPT) Less than 7 U/L (8-55); AST (SGOT) 18 U/L (5-34); Albumin 3.2 g/dL (3.4-4.8); Alkaline Phosphatase 44 U/L (40-150); Anion Gap 12 mmol/L (10-20); BUN (Urea Nitrogen) 64 mg/dL (8.4-25.7); Bilirubin, Total 0.5 mg/dL (0.2-1.2); Calc. Creatinine Clearance 36 mL/min (70-130); Calcium 9.4 mg/dL (7.8-10.44); Carbon Dioxide 31 mmol/L (23-31); Chloride 100 mmol/L (98-107); Estimated GFR-MDRD 40; Globulin 2.7 g/dL (2.4-3.5); Glucose 103 mg/dL (83-110); Protein, Total 5.9 g/dL (5.8-8.1); Sodium 139 mmol/L (136-145)
[2017-11-22] MEDS: Acetaminophen 1,000 MG in Premix Bag 1 BAG IVPB PRN (06:44)
[2017-11-22] MEDS: Lactated Ringer's 1,000 ML IV SCH ×3 (06:45→20:31)
--- NOTE | 2017-11-22 09:31 | RAD ---
2 VIEWS ABDOMEN: Date: 11/22/17 HISTORY: Small bowel obstruction. FINDINGS: Supine and upright views of abdomen obtained. Comparison made to previous exam from 11/21/17. Images demonstrate nasogastric tube again in place. There continue to be abnormally dilated loops of small bowel with air fluid levels compatible with eden wel obstruction or ileus. No evidence of large pockets of free intraperitoneal air seen. IMPRESSION: Continued small bowel dilatation with air fluid levels compatible with bowel obstruction. POS: [facility]
[2017-11-22] MEDS: Famotidine/PF 20 mg/2ml Vial SLOW IVP SCH ×2 (09:39→21:45)
--- NOTE | 2017-11-22 10:34 | PDOC.GSPN ---
Surgery Progress Note: Subj - Subjective Narrative: No complaints today. SBFT ordered but there is question of PO and IV contrast allergy. Patient is unsure of when and how he had reaction. Radiology found that he had oral contrast several years ago without issue. Surgery Progress Note: Obj - Vital signs Vital signs: Vital Signs - Most Recent Temp Pulse Resp BP Pulse Ox 98.4 F 76 18 111/64 97 11/22/17 08:00 11/22/17 08:00 11/22/17 08:00 11/22/17 08:00 11/22/17 08:00 - Physical Exam General: no distress Respiratory: clear to auscultation Abdomen: soft, non tender, positive bowel sounds, distended Surgery Progress Note: Results - Labs Result Diagrams: 11/22/17 05:26 11/22/17 05:26 Lab results: Laboratory Results - last 24 hr 11/22/17 11/22/17 05:26 05:26 WBC 3.6 L RBC 4.09 L Hgb 12.2 L Hct 38.3 L MCV 93.7 MCH 29.8 MCHC 31.8 L RDW 13.8 Plt Count 249 MPV 7.8 Neutrophils % 72.9 Lymphocytes % 18.2 L Monocytes % 8.2 Eosinophils % 0.5 Basophils % 0.1 Neutrophils # 2.6 Lymphocytes # 0.7 L Monocytes # 0.3 Eosinophils # 0.0 Basophils # 0.0 Sodium 139 Potassium 4.0 Chloride 100 Carbon Dioxide 31 Anion Gap 12 BUN 64 H Creatinine 1.69 H Estimated GFR (MDRD) 40 Glucose 103 Calcium 9.4 Total Bilirubin 0.5 AST 18 ALT Less than 7 L Alkaline Phosphatase 44 Serum Total Protein 5.9 Albumin 3.2 L Globulin 2.7 Albumin/Globulin Ratio 1.2 Surgery Progress Note: A/P - Problem (1) Small bowel obstruction Current Visit: Yes Code(s): K56.609 - UNSP INTESTNL OBST, UNSP TO PARTIAL VERSUS COMPLETE OBST Status: Acute - Plan Plan: Plan SBFT today. He has bowel sounds and had bowel movement
[2017-11-22] MEDS ORDERED: Ziprasidone 20 MG VIAL ONE (17:20)
[2017-11-22] MEDS ORDERED: Sterile Water 10 ML ONE ×2 (17:20→21:43)
[2017-11-22] MEDS ORDERED: Sterile Water 10 ML VIAL FS PRN (18:08)
[2017-11-22] MEDS: Enoxaparin Sodium 40 MG/0.4 ML SYRINGE SC SCH (21:45)
[2017-11-22] MEDS: Ketorolac Tromethamine 30 MG/ML VIAL IVP PRN (21:45)
[2017-11-22] MEDS: Ziprasidone 20 MG VIAL IM PRN (21:46)
--- NOTE | 2017-11-22 22:24 | RAD ---
SMALL BOWEL STUDY: 11/22/17 HISTORY: Small bowel obstruction. FINDINGS: There are multiple dilated loops of small bowel as noted on the CT exam on 11/21/15. There is slow pro gression of contrast through the multiple dilated loops of small bowel. Contrast visualized within th e proximal ascending colon on the 8 hour delayed image. Contrast is seen within the urinary bladder related to prior contrasted study. There is a lucent centered calcification overlying the left lower quadrant probably related to phlebo liths. Surgical clips overlie the right upper quadrant. Nasogastric tube is noted in place which is coiled within the stomach. Tip in the region of the proxi mal body of the stomach. IMPRESSION: Findings suggestive of either a ileus or partial small bowel obstruction. Contrast is visualized with in the colon on the 8 hour delayed image. There is no evidence of a complete small bowel obstruction. POS: [facility]
[2017-11-23] MEDS ORDERED: Sterile Water 10 ML ONE ×2 (01:59→06:02)
[2017-11-23] MEDS: Ziprasidone 20 MG VIAL IM PRN ×3 (02:07→20:41)
[2017-11-23] MEDS: Lactated Ringer's 1,000 ML IV SCH ×3 (06:25→20:50)
[2017-11-23] MEDS: Famotidine/PF 20 mg/2ml Vial SLOW IVP SCH ×2 (08:58→20:21)
--- NOTE | 2017-11-23 10:14 | PDOC.GSPN ---
Surgery Progress Note: Subj - Subjective Patient reports: no new complaints, bowel movement, flatus Narrative: SBFT shows contrast in colon at 8 hours Surgery Progress Note: Obj - Vital signs Vital signs: Vital Signs - Most Recent Temp Pulse Resp BP Pulse Ox 98.6 F 78 18 144/80 H 95 11/23/17 08:00 11/23/17 08:00 11/23/17 08:00 11/23/17 08:00 11/23/17 08:00 - Physical Exam General: no distress Respiratory: clear to auscultation Abdomen: soft, distended (but active bowel sounds) Surgery Progress Note: Results - Labs Result Diagrams: 11/22/17 05:26 11/22/17 05:26 Surgery Progress Note: A/P - Problem (1) Small bowel obstruction Current Visit: Yes Code(s): K56.609 - UNSP INTESTNL OBST, UNSP TO PARTIAL VERSUS COMPLETE OBST Status: Acute Assessment and Plan: DC NG Clear liquids
[2017-11-23] MEDS: Ketorolac Tromethamine 30 MG/ML VIAL IVP PRN (17:58)
[2017-11-23] MEDS ORDERED: LEVODOPA PO SCH (18:00)
[2017-11-23] MEDS ORDERED: CARBIDOPA PO SCH (18:00)
[2017-11-23] MEDS: Enoxaparin Sodium 40 MG/0.4 ML SYRINGE SC SCH (20:20)
[2017-11-23] MEDS: Melatonin 3 MG TAB PO SCH (20:23)
[2017-11-23] MEDS: LEVODOPA PO SCH (20:24)
[2017-11-23] MEDS: CARBIDOPA PO SCH (20:24)
[2017-11-23] MEDS: Latanoprost 0.005% Ophth Soln 2.5 ml Bottle EA EYE SCH (20:51)
--- NOTE | 2017-11-24 00:17 | CON ---
DATE OF CONSULTATION: 11/23/2017 TIME OF SERVICE: 2200 hours. REQUESTING PHYSICIAN: Walker Pal M.D. REASON FOR CONSULTATION: Medical management. HISTORY OF PRESENT ILLNESS: Mr. Jane is a 77-year-old gentleman with history of Parkinson's, consti pation, hypertension, and right ear deafness, who was admitted on 11/21/2017 for a high-grade bowel o bstruction. He was admitted by the surgery team. Since that time, he has been given Toradol as need ed for pain and it looks like he has had 3 doses. He was on IV fluids at maintenance of 50 mL of lac tated ringer, and was having some difficulties with agitation at night and started on Geodon. Upper GI and small bowel follow through was done that showed delayed images with contrast in the colo n. The patient has been kept n.p.o. and initially had an NG tube placed. Overnight 11/21 and 11/22, I did pull his NG tube out. He was started on MiraLax and had multiple eden wel movements after the small bowel follow through on 11/22 and 11/23. Today, his creatinine was bumped up from 1.14-1.69. His BUN is up from 37-64. We have been consulte d for medical management. The patient is currently sedated after getting a dose of Geodon. He is in no distress at present. T he remainder of history is taken from the chart. PAST MEDICAL HISTORY: 1. Parkinsons disease. 2. Severe constipation. 3. Hypertension. 4. Right ear deafness. PAST SURGICAL HISTORY: 1. Colectomy in 2012. 2. Appendectomy in 2012. 3. Cholecystectomy in 2004. 4. Bilateral TKA in 2008. HOME MEDICATIONS: 1. Aspirin 325 mg daily. 2. Carbidopa/levodopa 36.25/1 two tabs p.o. t.i.d. 3. Finasteride 5 mg p.o. daily. 4. Latanoprost 0.05% daily. 5. Melatonin at bedtime. 6. Multivitamin daily. 7. MiraLax 17 grams b.i.d. 8. Senna/docusate 2 tabs b.i.d. 9. Fleet enema as needed. 10. Aldactazide 25/25 one p.o. daily. 11. Vitamin E 400 units p.o. daily. ALLERGIES: AMANTADINE, BACITRACIN, BIAXIN, and IODINATED CONTRAST. Reactions were none. FAMILY HISTORY: Not obtainable. SOCIAL HISTORY: Per the chart is negative x3. The patient is not awake enough to give any history. REVIEW OF SYSTEMS: A 10-point review of systems was attempted. The patient is not awake enough to a nswer questions. PHYSICAL EXAMINATION: VITAL SIGNS: Temperature 98.8, pulse 106, blood pressure 158/70, respiratory rate 16, sat 94% on franklin m air. GENERAL: He is sleeping comfortably. He is in no acute distress. HEENT: Normocephalic, atraumatic. Pupils equal, round, react to light bilaterally. Mucous membrane s are moist. No visible lesions or thrush. NECK: Supple, without lymphadenopathy, JVD, or thyromegaly. He has normal carotid upstroke. I do n ot hear bruits. LUNGS: Have shallow breath sounds bilaterally. He has no wheezes or rales. No prolonged expiratory phase. CARDIOVASCULAR: Tachycardic and regular. Normal S1 and S2. I do not appreciate murmurs. ABDOMEN: Scaphoid. It is nontender, nondistended, no mass or organomegaly. He has normoactive dulce l sounds present in all 4 quadrants. EXTREMITIES: Show no signs of clubbing, no edema. SKIN: Warm, moist, and well perfused. No rashes or lesions. TKA incisions are well healed. MUSCULOSKELETAL: Normal to inspection. Large joints appear uninflamed. There is no palpable effusi ons. NEUROLOGIC: Not testable. LABORATORY DATA: Today sodium 139, potassium 4.0, chloride 100, bicarbonate 31, BUN 64, creatinine 1 .69. Again, creatinine is up from 1.14 and BUN is up from 37, calcium 9.4, glucose 103. Liver funct ion within normal limits. CBC today is 3.6 down from 10.8, hemoglobin 12.2, hematocrit 38.3, platelet count is 249,000. RADIOGRAPHIC STUDIES: On 11/22/2017, small bowel follow through showed contrast in the colon. Delay ed images at 8 hours. ASSESSMENT AND PLAN: 1. Obstipation/adynamic ileus versus partial small-bowel obstruction. The patient put out his NG tu be, had multiple bowel movements today. Surgery is managing. 2. Moderate dehydration: Patient was on 50 mL per hour, lactated Ringer's now decreased to 125 by t surgery team. Certainly, his labs look prerenal. We will continue to aggressively hydrate. He h as had at least 4 wet briefs today. 3. Acute kidney injury. Creatinine 1.14-1.69. We will stop the Toradol at this point. Certainly c ould be contributing. He is not on any diuretics at this point. We will continue fluids at 125 an h our, watch carefully. No known history of heart failure. 4. History of Parkinsons disease, on Sinemet. Continue once he is able to take p.o. reliably. 5. Essential hypertension. The patient is on Aldactazide daily. We will hold at present.
[2017-11-24] MEDS: Lactated Ringer's 1,000 ML IV SCH (06:33)
[2017-11-24] MEDS: Famotidine/PF 20 mg/2ml Vial SLOW IVP SCH (08:56)
[2017-11-24] MEDS: Finasteride 5 MG TAB PO SCH (08:56)
[2017-11-24] MEDS: LEVODOPA PO SCH ×3 (09:02→20:17)
[2017-11-24] MEDS: CARBIDOPA PO SCH ×3 (09:02→20:17)
--- NOTE | 2017-11-24 10:36 | PDOC.GSPN ---
Surgery Progress Note: Subj - Subjective Patient reports: no new complaints, bowel movement, tolerating liquids well Surgery Progress Note: Obj - Vital signs Vital signs: Vital Signs - Most Recent Temp Pulse Resp BP Pulse Ox 97.7 F 70 18 144/63 H 98 11/24/17 08:05 11/24/17 08:05 11/24/17 08:05 11/24/17 08:05 11/24/17 08:05 - Physical Exam General: no distress Respiratory: clear to auscultation Abdomen: soft, nondistended, positive bowel sounds Surgery Progress Note: Results - Labs Result Diagrams: 11/22/17 05:26 11/22/17 05:26 Surgery Progress Note: A/P - Problem (1) Small bowel obstruction Current Visit: Yes Code(s): K56.609 - UNSP INTESTNL OBST, UNSP TO PARTIAL VERSUS COMPLETE OBST Status: Acute Assessment and Plan: Resolving. Full liquids today. If tolerates, possible DC tomorrow
--- NOTE | 2017-11-24 12:16 | PDOC.PN ---
- Subjective Encounter Start Date: 11/24/17 Encounter Start Time: 12:14 Mr. Jane does not have any complaints this afternoon. He denies abdominal pain , and nausea or vomiting. - Objective Resuscitation Status: Resuscitation Status DNR:Do Not Resuscitate MAR Reviewed: Yes Vital Signs & Weight: Vital Signs (12 hours) Temp Pulse Resp BP Pulse Ox 11/24/17 08:05 97.7 F 70 18 144/63 H 98 11/24/17 05:24 99 11/24/17 05:04 98.3 F 73 16 156/92 H 100 Weight Admit Weight 153 lb 9.6 oz Weight 153 lb 9.6 oz I&O: 11/23/17 11/24/17 11/25/17 06:59 06:59 06:59 Intake Total 2235 2710 Output Total 1600 150 Balance 635 2560 Result Diagrams: 11/22/17 05:26 11/22/17 05:26 Phys Exam - Physical Examination HEENT: PERRLA Respiratory: no wheezing, no rales, no rhonchi, clear to auscultation bilateral Cardiovascular: RRR, no significant murmur Gastrointestinal: soft, non-tender, positive bowel sounds Musculoskeletal: no edema Dx/Plan (1) Acute kidney injury Code(s): N17.9 - ACUTE KIDNEY FAILURE, UNSPECIFIED Status: Acute (2) Hypertension Code(s): I10 - ESSENTIAL (PRIMARY) HYPERTENSION Status: Acute (3) Small bowel obstruction Code(s): K56.609 - UNSP INTESTNL OBST, UNSP TO PARTIAL VERSUS COMPLETE OBST Status: Acute (4) Parkinson disease Code(s): G20 - PARKINSON'S DISEASE Status: Acute (5) BPH (benign prostatic hypertrophy) Code(s): N40.0 - BENIGN PROSTATIC HYPERPLASIA WITHOUT LOWER URINRY TRACT SYMP Status: Chronic - Plan * Small Bowel Obstruction/ Ileus - resolved * HTN- blood pressure is slightly elevated- however will hold on adding back Aldactoside until his renal function has improved * Acute Kidney injury- will re-check his creatinine today * Advance diet as per Surgery * Parkinson's disease- advanced, but stable.
[2017-11-24 13:28] LABS: Anion Gap 12 mmol/L (10-20); BUN (Urea Nitrogen) 25 mg/dL (8.4-25.7); Calc. Creatinine Clearance 77 mL/min (70-130); Calcium 8.6 mg/dL (7.8-10.44); Carbon Dioxide 22 mmol/L (23-31); Chloride 109 mmol/L (98-107); Estimated GFR-MDRD Greater than 90; Glucose 98 mg/dL (83-110); Potassium 3.8 mmol/L (3.5-5.1); Sodium 139 mmol/L (136-145)
[2017-11-24] MEDS: Enoxaparin Sodium 40 MG/0.4 ML SYRINGE SC SCH (20:15)
[2017-11-24] MEDS: Latanoprost 0.005% Ophth Soln 2.5 ml Bottle EA EYE SCH (20:16)
[2017-11-24] MEDS: Melatonin 3 MG TAB PO SCH (20:16)
[2017-11-24] MEDS: Famotidine 20 MG TAB PO SCH (20:16)
[2017-11-25] MEDS: Lactated Ringer's 1,000 ML IV SCH (04:44)
[2017-11-25] MEDS: LEVODOPA PO SCH (09:08)
[2017-11-25] MEDS: Famotidine 20 MG TAB PO SCH (09:08)
[2017-11-25] MEDS: CARBIDOPA PO SCH (09:08)
[2017-11-25] MEDS: Finasteride 5 MG TAB PO SCH (09:08)
--- NOTE | 2017-11-25 09:12 | PDOC.GSPN ---
Surgery Progress Note: Subj - Subjective Patient reports: tolerating liquids well Surgery Progress Note: Obj - Vital signs Vital signs: Vital Signs - Most Recent Temp Pulse Resp BP Pulse Ox 97.7 F 57 L 16 163/103 H 99 11/25/17 07:49 11/25/17 07:49 11/25/17 07:49 11/25/17 07:49 11/25/17 07:49 - Physical Exam General: no distress Cardiovascular: regular rate and rhythm Respiratory: clear to auscultation Abdomen: soft, non tender, nondistended Surgery Progress Note: Results - Labs Result Diagrams: 11/22/17 05:26 11/24/17 12:48 Surgery Progress Note: A/P - Problem (1) Small bowel obstruction Current Visit: Yes Code(s): K56.609 - UNSP INTESTNL OBST, UNSP TO PARTIAL VERSUS COMPLETE OBST Status: Acute Assessment and Plan: SBO resolved, DC home
[2017-11-25 12:53] VITALS: BP 143/79; TEMP 98.4
--- NOTE | 2017-11-25 15:33 | DIS ---
DATE OF ADMISSION: 11/21/2017 DATE OF CONSULTATION: 11/23/2017 DATE OF DISCHARGE: 11/25/2017 DISCHARGE DISPOSITION: Home. PRIMARY DISCHARGE DIAGNOSES: 1. Small-bowel obstruction, resolved. 2. Hypertension. 3. Parkinson's disease, which is advanced. 4. History of coronary artery disease. 5. Chronic venous stasis. 6. Hyperlipidemia. 7. Gastroesophageal reflux disease. DISCHARGE MEDICATIONS: Include vitamin E 400 units daily, Aldactone, Aldactazide 25/25 daily, Fleet enema p.r.n., MiraLax p.r.n., multivitamin once a day, melatonin 4 mg at bedtime, latanoprost 1 drop to each eye at bedtime, finasteride 5 mg daily, Rytary extended release, carbidopa/levodopa 36.25 two capsules 3 times a day and aspirin 325 mg daily. PROCEDURES DONE DURING ADMISSION: The patient had a CT scan of the abdomen and pelvis in which there was marked dilatation of the small bowel up to 5.6 cm with abrupt collapse in the mid abdomen consis tent with a high grade small-bowel obstruction. The patient had a small bowel follow-through in [facility] there were findings suggestive of ileus or partial small-bowel obstruction. CODE STATUS: DNR. ALLERGIES: AMANTADINE, CLARITHROMYCIN, IODINATED CONTRAST, BACITRACIN, POLYMYXIN B SULFATE. HOSPITAL COURSE: Mr. Jane is a pleasant 77-year-old gentleman who was brought from home after he wa s suffering from complaints of nausea and vomiting. He was found to have a partial small-bowel obstr uction. He was admitted to the Surgery Service. The bowel obstruction resolved without surgical int ervention. At the time of discharge, he was tolerating clear liquids. The hospitalist team was cons ulted for medical management. He had stable blood pressure and his Parkinson's disease, though advan stephanie is stable. He had a slight episode of acute kidney injury, likely due to Toradol and some mild v olume depletion. This actually resolved at the time of discharge and his discharging creatinine was 0.79. He was stable and then subsequently discharged home on 11/25/2017. He has [facility] regiver help at home.
== END 2017-11-25 16:01 | disposition home or self-care (01) | DRG 389 ==
LOC: ERS 00:26 → SURG B 03:17
PROVIDERS: ADMIT Specialist; ATTEND Specialist
DX: K56.609 Unspecified intestinal obstruction, unspecified as to partial versus complete obstruction (principal); N17.9 Acute kidney failure, unspecified; G20 Parkinson's disease; E86.0 Dehydration; K56.7 Ileus, unspecified; E86.9 Volume depletion, unspecified; F02.80 Dementia in other diseases classified elsewhere, unspecified severity, without behavioral disturbance, psychotic disturbance, mood disturbance, and anxiety; Z66 Do not resuscitate; I10 Essential (primary) hypertension; N40.0 Benign prostatic hyperplasia without lower urinary tract symptoms; K21.9 Gastro-esophageal reflux disease without esophagitis; E78.5 Hyperlipidemia, unspecified; I87.8 Other specified disorders of veins; T39.8X5A Adverse effect of other nonopioid analgesics and antipyretics, not elsewhere classified, initial encounter
CPT/HCPCS: 36415; 71045; 74018; 74019; 74022; 74176; 74250; 80048; 80053; 83690; 85025; 90471; 90682; 93005; 94760; 96361; 96374; 96375; 96376; A4216; G0008; G8978-GP-CM; G8979-GP-CK; J0131; J1650; J1885; J2405; J3010; J3486; Q2036; S0028

== ENCOUNTER 2018-02-18 19:14 | Emergency (ER) | payer MEDICARE, BC ==
[2018-02-18 20:00] LABS: #Eosinphils 0.1 thou/uL (0.0-0.7); #Lymphocytes 0.9 thou/uL (1.20-3.40); #Monocytes 0.4 thou/uL (0.11-0.59); #Neutrophils 3.5 thou/uL (1.40-6.50); %Basophils 0.6 % (0.0-1.0); %Lymphocytes 17.9 % (21.0-51.0); %Monocytes 7.9 % (0.0-10.0); %Neutrophils 71.7 % (42.0-75.0); Hemoglobin 13.8 g/dL (14.0-18.0); Mean Corpuscular HGB CONC 34.2 g/dL (32.0-36.0); Mean Corpuscular Volume 93.4 fl (80.0-94.0); Mean Platelet Volume 7.3 fL (7.4-10.4); Platelet Count 194 thou/uL (130-400); RBC Distribution Width 13.2 % (11.5-14.5); Red Blood Cell (RBC) Count 4.31 mill/uL (4.70-6.10); White Blood Cell (WBC) Count 4.9 thou/uL (4.8-10.8)
[2018-02-18 20:21] LABS: ALT (SGPT) Less than 7 U/L (8-55); AST (SGOT) 22 U/L (5-34); Albumin 4.2 g/dL (3.4-4.8); Alkaline Phosphatase 68 U/L (40-150); Anion Gap 11 mmol/L (10-20); BUN (Urea Nitrogen) 36 mg/dL (8.4-25.7); Bilirubin, Total 0.5 mg/dL (0.2-1.2); Calc. Creatinine Clearance 0 mL/min (70-130); Calcium 9.6 mg/dL (7.8-10.44); Carbon Dioxide 30 mmol/L (23-31); Chloride 101 mmol/L (98-107); Estimated GFR-MDRD 54; Globulin 2.7 g/dL (2.4-3.5); Glucose 103 mg/dL (83-110); Potassium 3.7 mmol/L (3.5-5.1); Protein, Total 6.9 g/dL (5.8-8.1); Sodium 138 mmol/L (136-145)
[2018-02-18] MEDS ORDERED: Acetaminophen 500 MG TAB ONE (22:59)
[2018-02-18] MEDS ORDERED: Carbidopa/Levodopa CR 50-200 mg Tablet PO SCH (23:00)
--- NOTE | 2018-02-19 00:05 | CT ---
CT ABDOMEN AND PELVIS WITHOUT CONTRAST: HISTORY: Rectal bleeding. COMPARISON: CT abdomen and pelvis from 11/21/2017. FINDINGS: The lung bases are clear. No pericardial effusion. Moderate stool burden throughout the colon. Previously noted small bowel obstruction appears to have resolved. There is narrowing of the sigmoid colon due to what appears to be an internal hernia with multiple small bowel loops within the pelvis. This is likely chronic in nature. The aortoiliac con tour is nonaneurysmal. No free intraperitoneal gas or fluid. No nephroureterolithiasis or hydroureteronephrosis. There is secondary evidence of a recently passed stone. Noncontrast evaluation of the spleen, liver, and pancreas is unremarkable. IMPRESSION: 1. 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 There is also presacral edema, which may be congestion from the rectal veins. No evidence of high grade small bowel obstruction. 2. Moderate stool burden throughout the colon with some moderately distended air-filled loops of sig moid colon within the anterior abdomen. It may be sequela of the compression from the internal herni a small bowel loops. POS: [facility]
== END 2018-02-19 01:05 | disposition home or self-care (01) ==
LOC: ERS 19:14
DX: K92.2 Gastrointestinal hemorrhage, unspecified (principal); G20 Parkinson's disease; I10 Essential (primary) hypertension; H91.3 Deaf nonspeaking, not elsewhere classified; N40.0 Benign prostatic hyperplasia without lower urinary tract symptoms; Z79.899 Other long term (current) drug therapy; Z79.82 Long term (current) use of aspirin
CPT/HCPCS: 36415; 74176; 80053; 82274; 85025; 86850; 86900; 86901; 96360

== ENCOUNTER 2019-03-24 09:44 | Emergency (ER) | payer MEDICARE, BC ==
[2019-03-24 10:29] LABS: #Eosinphils 0.1 thou/uL (0.0-0.7); #Lymphocytes 0.6 thou/uL (1.20-3.40); #Monocytes 0.3 thou/uL (0.11-0.59); #Neutrophils 3.3 thou/uL (1.40-6.50); %Basophils 0.9 % (0.0-1.0); %Eosinophils 2.4 % (0.0-10.0); %Lymphocytes 14.1 % (21.0-51.0); %Monocytes 5.8 % (0.0-10.0); %Neutrophils 76.9 % (42.0-75.0); Hemoglobin 14.7 g/dL (14.0-18.0); Mean Corpuscular HGB CONC 33.6 g/dL (32.0-36.0); Mean Corpuscular Hemoglobin 31.7 pg (27.0-31.0); Mean Corpuscular Volume 94.5 fL (78.0-98.0); Mean Platelet Volume 7.7 fL (7.4-10.4); Platelet Count 149 thou/uL (130-400); RBC Distribution Width 11.9 % (11.5-14.5); Red Blood Cell (RBC) Count 4.65 mill/uL (4.70-6.10); White Blood Cell (WBC) Count 4.3 thou/uL (4.8-10.8)
--- NOTE | 2019-03-24 10:36 | RAD ---
Chest one view HISTORY: Chest pain. COMPARISON: 11/21/2017. FINDINGS: Cardiac silhouette is magnified by projection. Pulmonary vasculature is unremarkable. Media stinum is midline with aortic calcification. No lobar consolidation or evidence of pneumothorax. Gaseous distention of the colon is again demonstrated with interposition of the hepatic flexure above the dome of the liver on today's exam. Prominent degenerative right shoulder with destructive changes of the humeral head. Stable. IMPRESSION: Atherosclerosis. No active cardiopulmonary abnormalities are otherwise demonstrated.
[2019-03-24 10:57] LABS: ALT (SGPT) Less than 7 U/L (8-55); AST (SGOT) 13 U/L (5-34); Albumin 3.8 g/dL (3.4-4.8); Alkaline Phosphatase 54 U/L (40-150); Anion Gap 11 mmol/L (10-20); BUN (Urea Nitrogen) 26 mg/dL (8.4-25.7); Bilirubin, Total 0.7 mg/dL (0.2-1.2); Calc. Creatinine Clearance 0 mL/min (70-130); Calcium 8.9 mg/dL (7.8-10.44); Carbon Dioxide 24 mmol/L (23-31); Chloride 107 mmol/L (98-107); Estimated GFR-MDRD 61; Globulin 2.2 g/dL (2.4-3.5); Glucose 108 mg/dL (83-110); Potassium 3.4 mmol/L (3.5-5.1); Sodium 139 mmol/L (136-145)
--- NOTE | 2019-03-24 12:21 | CT ---
CT BRAIN: 03/24/2019 PROVIDED CLINICAL HISTORY: Altered mental status. COMPARISON: 07/24/2015 FINDINGS: The ventricular system appears normal in size and morphology. There is no evidence for intracranial hemorrhage or mass effect. Chronic microvascular ischemic changes are redemonstrated, similar to the prior study. Vascular calcifications are seen. The extracranial soft tissues and osseous structure s demonstrate no acute abnormality. IMPRESSION: No evidence for intracranial hemorrhage or mass effect. POS: [facility]
[2019-03-24 14:46] LABS: Bilirubin Negative (Negative); Blood, Urine Negative (Negative); Clarity CLEAR (Clear); Glucose, Urine (Dipstick) Negative (Negative); Leukocyte Negative (Negative); Nitrite Negative (Negative); Protein, Urine (Dipstick) Trace mg/dL (Neg-Trace); Specific Gravity, Urine 1.022 (1.002-1.036); Urobilinogen 0.2 mg/dL (0.2-1.0)
== END 2019-03-24 15:29 | disposition home or self-care (01) ==
LOC: ERS 09:44
DX: R55 Syncope and collapse (principal)
CPT/HCPCS: 36415; 36416; 70450; 71045; 80053; 81003; 84443; 84484; 85025; 93005

== ENCOUNTER 2019-04-28 09:59 | Emergency (ER) | payer MEDICARE, BC ==
[2019-04-28 10:42] LABS: Anion Gap 11 mmol/L (10-20); BUN (Urea Nitrogen) 24 mg/dL (8.4-25.7); Calc. Creatinine Clearance 0 mL/min (70-130); Calcium 9.7 mg/dL (7.8-10.44); Carbon Dioxide 27 mmol/L (23-31); Chloride 107 mmol/L (98-107); Estimated GFR-MDRD 65; Glucose 86 mg/dL (83-110); Potassium 3.9 mmol/L (3.5-5.1); Sodium 141 mmol/L (136-145)
== END 2019-04-28 11:10 | disposition home or self-care (01) ==
LOC: ERS 09:59
DX: I12.9 Hypertensive chronic kidney disease with stage 1 through stage 4 chronic kidney disease, or unspecified chronic kidney disease (principal); N18.3 Chronic kidney disease, stage 3 (moderate); T43.595A Adverse effect of other antipsychotics and neuroleptics, initial encounter; D63.1 Anemia in chronic kidney disease; F03.90 Unspecified dementia, unspecified severity, without behavioral disturbance, psychotic disturbance, mood disturbance, and anxiety; Z79.899 Other long term (current) drug therapy
CPT/HCPCS: 36415; 80048; 99284

== ENCOUNTER 2019-09-06 08:41 | Emergency (ER) | payer MEDICARE, BC ==
--- NOTE | 2019-09-06 09:47 | CT ---
CT OF THE BRAIN WITHOUT CONTRAST: INDICATION: History of walking fainting in the living room and Parkinson's disease. COMPARISON: Prior noncontrast CT of the brain dated 03/24/2019. FINDINGS: The mild chronic small-vessel white matter ischemic change and generalized cerebral and cerebellar at rophy is stable. Calcification involving the left tentorium is stable-appearing. No acute infarct, hemorrhage, or hydrocephalus is present. Septum pellucidum and third ventricle are midline. Mastoid air cells are clear. Paranasal sinuses are clear. The skull is intact. IMPRESSION: No acute intracranial abnormality. POS: [facility]
[2019-09-06 09:48] LABS: #Eosinphils 0.1 thou/uL (0.0-0.7); #Lymphocytes 0.6 thou/uL (1.20-3.40); #Monocytes 0.3 thou/uL (0.11-0.59); #Neutrophils 2.6 thou/uL (1.40-6.50); %Basophils 0.5 % (0.0-1.0); %Eosinophils 2.4 % (0.0-10.0); %Monocytes 7.3 % (0.0-10.0); %Neutrophils 71.8 % (42.0-75.0); Hemoglobin 14.1 g/dL (14.0-18.0); Mean Corpuscular HGB CONC 33.3 g/dL (32.0-36.0); Mean Corpuscular Hemoglobin 31.8 pg (27.0-31.0); Mean Corpuscular Volume 95.4 fL (78.0-98.0); Platelet Count 157 thou/uL (130-400); RBC Distribution Width 11.8 % (11.5-14.5); Red Blood Cell (RBC) Count 4.44 mill/uL (4.70-6.10); White Blood Cell (WBC) Count 3.6 thou/uL (4.8-10.8)
--- NOTE | 2019-09-06 09:55 | RAD ---
Portable chest: HISTORY: Syncope COMPARISON: 03/24/2019 FINDINGS: Lung mackenzie are clear. Heart and mediastinum appear unremarkable. Vascularity is normal. Visualized osseous structures unremarkable. Gas-filled colon is seen under both hemidiaphragms, similar to prior exam. Severe degenerative change at the right shoulder again noted. IMPRESSION: No acute finding
[2019-09-06 10:08] LABS: ALT (SGPT) Less than 7 U/L (8-55); AST (SGOT) 19 U/L (5-34); Albumin 3.8 g/dL (3.4-4.8); Alkaline Phosphatase 75 U/L (40-110); Anion Gap 10 mmol/L (10-20); BUN (Urea Nitrogen) 33 mg/dL (8.4-25.7); Bilirubin, Total 0.4 mg/dL (0.2-1.2); Calc. Creatinine Clearance 0 mL/min (70-130); Calcium 8.9 mg/dL (7.8-10.44); Carbon Dioxide 28 mmol/L (23-31); Chloride 106 mmol/L (98-107); Estimated GFR-MDRD 56; Globulin 2.4 g/dL (2.4-3.5); Glucose 110 mg/dL (83-110); Potassium 4.3 mmol/L (3.5-5.1); Protein, Total 6.2 g/dL (5.8-8.1); Sodium 140 mmol/L (136-145)
== END 2019-09-06 11:39 | disposition home or self-care (01) ==
LOC: ERS 08:41
DX: R55 Syncope and collapse (principal); N40.0 Benign prostatic hyperplasia without lower urinary tract symptoms; I10 Essential (primary) hypertension; G20 Parkinson's disease; F02.80 Dementia in other diseases classified elsewhere, unspecified severity, without behavioral disturbance, psychotic disturbance, mood disturbance, and anxiety; I12.9 Hypertensive chronic kidney disease with stage 1 through stage 4 chronic kidney disease, or unspecified chronic kidney disease; N18.3 Chronic kidney disease, stage 3 (moderate); D64.9 Anemia, unspecified; Z79.899 Other long term (current) drug therapy; Z79.82 Long term (current) use of aspirin
CPT/HCPCS: 36415; 70450; 71045; 80053; 84484; 85025; 93005

== ENCOUNTER 2019-11-03 13:31 | Observation (INO) | payer MEDICARE, BC ==
[2019-11-03 14:36] LABS: #Lymphocytes 0.6 thou/uL (1.20-3.40); #Monocytes 0.3 thou/uL (0.11-0.59); %Basophils 0.4 % (0.0-1.0); %Eosinophils 0.9 % (0.0-10.0); %Lymphocytes 12.1 % (21.0-51.0); %Monocytes 6.7 % (0.0-10.0); %Neutrophils 79.9 % (42.0-75.0); Hemoglobin 14.1 g/dL (14.0-18.0); Mean Corpuscular HGB CONC 32.9 g/dL (32.0-36.0); Mean Corpuscular Hemoglobin 31.4 pg (27.0-31.0); Mean Corpuscular Volume 95.6 fL (78.0-98.0); Platelet Count 151 thou/uL (130-400); RBC Distribution Width 11.6 % (11.5-14.5); Red Blood Cell (RBC) Count 4.48 mill/uL (4.70-6.10)
[2019-11-03 15:09] LABS: ALT (SGPT) Less than 7 U/L (8-55); AST (SGOT) 17 U/L (5-34); Albumin 4.2 g/dL (3.4-4.8); Alkaline Phosphatase 62 U/L (40-110); Anion Gap 10 mmol/L (10-20); BUN (Urea Nitrogen) 28 mg/dL (8.4-25.7); Bilirubin, Total 0.7 mg/dL (0.2-1.2); Calc. Creatinine Clearance 0 mL/min (70-130); Calcium 9.5 mg/dL (7.8-10.44); Carbon Dioxide 30 mmol/L (23-31); Chloride 105 mmol/L (98-107); Estimated GFR-MDRD 47; Globulin 2.4 g/dL (2.4-3.5); Glucose 109 mg/dL (83-110); Protein, Total 6.6 g/dL (5.8-8.1); Sodium 141 mmol/L (136-145)
--- NOTE | 2019-11-03 16:16 | PDOC.FPRHP ---
- History of Present Illness Chief Complaint: Syncopal Episode History of Present Illness: Manuel Jane is a 79 year old with a PMH of Parkinson's dementia, HTN, CKD3, hx of bowel obstruction, BPH who presents to the ED with his caregiver following a syncopal event at his home. Despite being A&Ox3 during the initial evaluation, the patient was found to be a rather poor historian who often became confused while answering questions, with demonstrated difficulty with word finding and concentration. As such, much of the HPI was provided by the caregiver and from the ED attending physician. Per the patient, he gets weak and falls frequently, and this episode was not unlike other episodes in the past that had caused him to present to the ED, with a frequency of 1-2 times per month. Patient denied any prodromal symptoms prior to his fall, stating that he fell backward while walking from his living room into the bathroom with the use of a walker. He specifically stated that he did not trip or feel a sudden sensation of weakness in his legs, nor did he experience any GARG, changes in vision, N/V, cough, SOB, CP, palpitations or ABD pain. Upon further questioning, he endorsed mild dysuria over the last few days , but stated specifically that he had not been feeling febrile, nor did he have symptoms of hematuria, new-onset rashes or lesions, bloody stools or dark stools. Patient states that he does not remember the time between fall and ambulance arriving. ED Course: Per the ED Attending Physician, the patient had a CXR that was WNL and an EKG that was read as NSR. Laboratory analysis revealed a mild YAZMIN, with a Cr of 1.46, but CBC and CMP were otherwise negative, with an initial Trop that was in the Negative Range. - Allergies/Adverse Reactions Allergies Allergy/AdvReac Type Severity Reaction Status Date / Time amantadine Allergy Unknown Verified 10/28/17 04:52 clarithromycin Allergy Unknown Verified 11/21/17 06:18 Iodinated Contrast Media Allergy Unknown Verified 10/28/17 04:52 [Iodinated Contrast- Oral and IV Dye] bacitracin [From Polysporin] Allergy Rash Verified 11/21/17 06:18 polymyxin B sulfate Allergy Rash Verified 11/21/17 06:18 [From Polysporin] - Home Medications Medication Instructions Recorded Confirmed Type Finasteride 5 mg PO DAILY 07/24/15 11/03/19 History Multivit, Therapeutic [Theragran] 1 tab PO DAILY #0 tab 07/26/15 11/21/17 Rx Spironolact/Hydrochlorothiazid 1 tab PO DAILY 10/19/15 11/21/17 History [Aldactazide] Aspirin 325 mg PO DAILY 10/28/17 11/21/17 History Carbidopa/Levodopa [Rytary ER] 2 capsule PO TID 10/28/17 11/03/19 History Latanoprost [Latanoprost 0.05% 1 drop EA EYE HS 10/28/17 11/21/17 History Ophth] Melatonin 4 mg PO HS 10/28/17 11/21/17 History Vitamin E 400 unit PO DAILY 10/28/17 11/21/17 History Polyethylene Glycol 3350 [Miralax] 17 gm PO BID pk 10/29/17 11/21/17 Rx Sennosides/Docusate Sodium [Senna 2 tab PO BID tab 10/29/17 11/21/17 Rx Plus Tablet] Sodium Phosphates [Fleet Enema] 133 ml DC PRN PRN 11/21/17 11/21/17 History - History PMHx: Parkinson's Disease, HTN, Anemia, CKD3, BPH PSHx: Appendectomy, Cholecystectomy, Bilateral TKRs, Tonsillectomy (Remote) FHx: No documented history of seizures or severe cardiac conditions Social: Denies x3. Code: Patient stated that he wanted "compressions only" if he were to become incapacitated. - Review of Systems General: denies: fever/chills, weight/appetite/sleep changes Eyes: denies: eye pain, vision changes ENT: denies: nasal congestion, rhinorrhea Respiratory: denies: cough, congestion, shortness of breath Cardiovascular: denies: chest pain, palpitation, edema Gastrointestinal: denies: nausea, vomiting, diarrhea, constipation, abdominal pain Genitourinary: reports: dysuria. denies: incontinence, polyuria Skin: denies: rashes, lesions, jaundice Musculoskeletal: denies: pain, tenderness, stiffness, swelling, arthritis/ arthralgias Neurological: reports: syncope, weakness. denies: numbness, seizure Psychological: denies: anxiety, depression - Vital signs BP: 119/79 HR: 74 RR: 16 Tmax: 97.9 Pox: 100% on RA Wt: 70 kg - Physical Exam Constitutional: NAD, awake, alert and oriented HEENT: normocephalic and atraumatic, PERRLA, EOMI, conjunctiva clear, no scleral icterus, grossly normal vision, grossly normal hearing, normal nasal mucosa, MMM, oropharynx clear Neck: supple, FROM, trachea midline, no LAD, no JVD Chest: no-tender to palpation, no lesions Heart: RRR, normal S1/S2, no murmurs/rubs/gallops Lungs: CTAB, no respiratory distress, good air movement, no rales/rhonchi, no wheezing Abdomen: soft, non-tender, bowel sounds present, no masses/distention Neurological: CN II-XII intact, normal sensation, other (Patient had a severe bilateral tremor of the UEs at baseline.) Skin: no rash/lesions, capillary refill <2 seconds Heme/Lymphatic: no unusual bruising or bleeding, no purpura, no petechia, no LAD Psychiatric: intact recent and remote memory, other (See HPI with regard to Mental Status.) FMR H&P: Results - Labs Result Diagrams: 11/03/19 14:18 11/03/19 14:18 Lab results: WBC 5.0 thou/uL (4.8-10.8) 11/03/19 14:18 Hgb 14.1 g/dL (14.0-18.0) 11/03/19 14:18 Hct 42.8 % (42.0-52.0) 11/03/19 14:18 MCV 95.6 fL (78.0-98.0) 11/03/19 14:18 Plt Count 151 thou/uL (130-400) 11/03/19 14:18 Neutrophils % 79.9 % (42.0-75.0) H 11/03/19 14:18 Sodium 141 mmol/L (136-145) 11/03/19 14:18 Potassium 4.0 mmol/L (3.5-5.1) 11/03/19 14:18 Chloride 105 mmol/L (98-107) 11/03/19 14:18 Carbon Dioxide 30 mmol/L (23-31) 11/03/19 14:18 BUN 28 mg/dL (8.4-25.7) H 11/03/19 14:18 Creatinine 1.46 mg/dL (0.7-1.3) H 11/03/19 14:18 Glucose 109 mg/dL (83-110) 11/03/19 14:18 Calcium 9.5 mg/dL (7.8-10.44) 11/03/19 14:18 Total Bilirubin 0.7 mg/dL (0.2-1.2) 11/03/19 14:18 AST 17 U/L (5-34) 11/03/19 14:18 ALT Less than 7 U/L (8-55) L 11/03/19 14:18 Alkaline Phosphatase 62 U/L (40-110) 11/03/19 14:18 Serum Total Protein 6.6 g/dL (5.8-8.1) 11/03/19 14:18 Albumin 4.2 g/dL (3.4-4.8) 11/03/19 14:18 - EKG Interpretation EKG: NSR, RBBB - consistent with previously document EKGs - Radiology Interpretation Chest x-ray Status: report reviewed by me Additional comment: NAF, as reported by the ED Attending Physician. FMR H&P: A/P - Problem List (1) Syncopal episodes Current Visit: Yes Status: Acute Code(s): R55 - SYNCOPE AND COLLAPSE (2) Acute kidney injury Current Visit: No Status: Acute Code(s): N17.9 - ACUTE KIDNEY FAILURE, UNSPECIFIED (3) Generalized weakness Current Visit: No Status: Acute Code(s): R53.1 - WEAKNESS (4) Hypertension Current Visit: No Status: Acute Code(s): I10 - ESSENTIAL (PRIMARY) HYPERTENSION (5) Parkinson disease Current Visit: No Status: Acute Code(s): G20 - PARKINSON'S DISEASE (6) BPH (benign prostatic hypertrophy) Current Visit: No Status: Chronic Code(s): N40.0 - BENIGN PROSTATIC HYPERPLASIA WITHOUT LOWER URINRY TRACT SYMP - Plan Patient is a 79 y/o male with a PMH significant for Parkinson's Disease who presents to the ED after a syncopal episode. 1. Syncope -Patient is a poor historian - difficult to fully assess details of syncopal episode -No evidence of trauma or cardiopulmonary compromise at this time - physical exam otherwise unremarkable -Initial lab values were remarkable only for mild YAZMIN - see #2 -Trops: Negative x1 -CT Brain (08/2019): NAF - will not repeat -EKG: NSR w/ BBB - consistent with previous EKGs -TTE: Pending -UA (Straight Cath): Pending -Multiple documented episodes of Syncope in the past - previous reports reviewed -Serial Orthostatic BP Measurements -Will hold sedating medications 2. YAZMIN -Cr: 1.46 -NS @ 110 ml/hr -Will reassess fluid status with AM labs 3. BPH -Will continue home medication regimen 4. Parkinson's Disease -Will continue home medication regimen 5. HTN -Patient is currently not taking medication -BP: 119/72 in the ED -Will continue to monitor Provider: CC Code: Compressions Only - Will Reassess in AM VTE: SCDs & Lovenox Activity: Strict Bedrest Diet: HH w/ Low Sodium Dispo: Patient is currently admitted to the Telemetry Floor for observation. Will trend Trops and AM labs and await results of TTE. Plan for DC if all are unremarkable - consider outpatient Holter Monitor and additional cardiac work- up if patient is amenable. Expected LOS < 24H. FMR H&P: Upper Level - Plan Date/Time: 11/03/19 1616 I, Henry Carroll MD, have evaluated this patient and agree with findings/plan as outlined by financial intern resident. Pertinent changes/additions are listed here. Manuel Jane is a 79 year old M with a PMH of Parkinson's disease, CKD3, BPH who was brought to the ED by EMS because caregiver was concerned for syncopal episodes. Pt is poor historian but caregiver states that patient was sitting in chair and it appeared that his breathing pattern changed, slowed, she laid him down on the floor and within seconds her returned to normal. States this occurs one or two times a month and she was concerned. Pt denies feeling any fever, chills, vision changes, chest pain, headaches, palpitations, n/v, abdominal pain. Does state that he has had burning with urination over the last couple days. In the ED, EKG showed NSR with RBBB. Previous EKGs in 2016/ 2016 show RBBB as well. Trop was 0.023, WBC 5.0, Hg 14.1, Platelets 151, Na 141 , K 4.0, Cr 1.46, BUN 28, glucose 109. No imaging done. Physical exam significant for resting tremor, somewhat dry MM, cardiac RRR no murmurs, Lungs CTAB, Abd soft/NT/ND, no guarding/rigidity, no LE edema. Ulcerations on feet, no signs of infection. Admitting patient to tele obs for continuous cardiac monitoring overnight. Will trend cardiac enzymes. Ordered Echo. Check Orthostatics. No signs of trauma to head, will hold on CT brain. Checking UA and culture. Will start mIVFs and repeat labs in AM. Will monitor symptoms overnight, anticipate hospital stay < 48 hours. Please see financial intern note above for full h&p, which I have reviewed and agree with. Code Status: DNI PCP: Mercedes[facility]Sharon Kebede Call Addendum - Attending - Attending Attestation Date/Time: 11/04/19 0048 I personally evaluated the patient and discussed the management with Dr. Bryan. I agree with the History, Examination, Assessment and Plan documented above with any addition or exceptions noted below. Caregiver tells me that the patient was sitting in his wheelchair at the table and slumped sideways onto the ground and did not hit his head. His exam is relatively unremarkable besides exam findings consistent with parkinson's.
[2019-11-03 18:02] LABS: Troponin I 0.015 ng/mL (< 0.028)
[2019-11-03] MEDS ORDERED: Ondansetron ODT 4 MG TAB PO PRN (18:15)
[2019-11-03] MEDS ORDERED: Acetaminophen 325 MG TAB PO PRN (18:15)
[2019-11-03 18:32] VITALS: BMI 23.2
[2019-11-03] MEDS ORDERED: LEVODOPA PO SCH (21:00)
[2019-11-03] MEDS ORDERED: CARBIDOPA PO SCH (21:00)
[2019-11-03 21:27] LABS: Troponin I Less than 0.010 ng/mL (< 0.028)
[2019-11-03] MEDS ORDERED: Carbidopa/Levodopa CR 50-200 mg Tablet PO SCH (22:45)
[2019-11-03] MEDS: Sodium Chloride 0.9% 1,000 ML IV SCH (22:49)
[2019-11-04] MEDS: Sodium Chloride 0.9% 1,000 ML IV SCH (04:47)
[2019-11-04 04:48] LABS: #Eosinphils 0.1 thou/uL (0.0-0.7); #Lymphocytes 1.2 thou/uL (1.20-3.40); #Monocytes 0.4 thou/uL (0.11-0.59); %Basophils 0.5 % (0.0-1.0); %Monocytes 9.1 % (0.0-10.0); %Neutrophils 63.4 % (42.0-75.0); Hemoglobin 13.4 g/dL (14.0-18.0); Mean Corpuscular HGB CONC 32.5 g/dL (32.0-36.0); Mean Corpuscular Hemoglobin 31.2 pg (27.0-31.0); Mean Corpuscular Volume 96.1 fL (78.0-98.0); Mean Platelet Volume 8.8 fL (7.4-10.4); Platelet Count 121 thou/uL (130-400); RBC Distribution Width 11.8 % (11.5-14.5); White Blood Cell (WBC) Count 4.7 thou/uL (4.8-10.8)
[2019-11-04 05:16] LABS: Anion Gap 12 mmol/L (10-20); BUN (Urea Nitrogen) 24 mg/dL (8.4-25.7); Calc. Creatinine Clearance 54 mL/min (70-130); Calcium 8.3 mg/dL (7.8-10.44); Carbon Dioxide 21 mmol/L (23-31); Chloride 108 mmol/L (98-107); Estimated GFR-MDRD 66; Glucose 75 mg/dL (83-110); Potassium 4.2 mmol/L (3.5-5.1); Sodium 137 mmol/L (136-145)
--- NOTE | 2019-11-04 05:27 | PDOC.FM ---
- Subjective Subjective: Patient was resting comfortably in his bed, being fed his breakfast at the time of evaluation. He denied any acute overnight events, specifically with regard to syncopal episodes or episodes of falling from bed. - Objective Vital Signs & Weight: Vital Signs (12 hours) Temp Pulse Resp BP BP BP BP 11/04/19 04:13 98.1 F 67 18 157/77 H 11/04/19 03:00 185/81 H 11/03/19 23:51 98.7 F 84 18 169/82 H 11/03/19 20:00 98.2 F 75 16 146/107 H 11/03/19 18:17 97.5 F L 67 20 174/76 H 166/76 H 179/82 H Pulse Ox 11/04/19 04:13 97 11/04/19 03:00 11/03/19 23:51 94 L 11/03/19 20:00 100 11/03/19 18:17 99 Weight Weight 68.946 kg I&O: 11/02/19 11/03/19 11/04/19 06:59 06:59 06:59 Intake Total 1640 Balance 1640 Result Diagrams: 11/04/19 04:31 11/04/19 04:31 Phys Exam - Physical Examination Constitutional: NAD HEENT: PERRLA, moist MMs, oral pharynx no lesions Neck: no nodes, supple, full ROM Respiratory: no wheezing, no rales, no rhonchi, clear to auscultation bilateral Cardiovascular: RRR, no significant murmur, no rub Gastrointestinal: soft, non-tender, no distention Musculoskeletal: no edema, pulses present Neurological: non-focal Psychiatric: normal affect Skin: no rash Dx/Plan (1) Syncopal episodes Code(s): R55 - SYNCOPE AND COLLAPSE Status: Acute (2) Acute kidney injury Code(s): N17.9 - ACUTE KIDNEY FAILURE, UNSPECIFIED Status: Acute (3) Generalized weakness Code(s): R53.1 - WEAKNESS Status: Acute (4) Hypertension Code(s): I10 - ESSENTIAL (PRIMARY) HYPERTENSION Status: Acute (5) Parkinson disease Code(s): G20 - PARKINSON'S DISEASE Status: Acute (6) BPH (benign prostatic hypertrophy) Code(s): N40.0 - BENIGN PROSTATIC HYPERPLASIA WITHOUT LOWER URINRY TRACT SYMP Status: Chronic - Plan Plan: Patient is a 79 y/o male with a PMH significant for Parkinson's Disease who presents to the ED after a syncopal episode. 1. Syncope -Patient is a poor historian - difficult to fully assess details of syncopal episode -No evidence of trauma or cardiopulmonary compromise at this time - physical exam otherwise unremarkable -Initial lab values were remarkable only for mild YAZMIN - see #2 -Trops: Negative x3 -CT Brain (08/2019): NAF - will not repeat -EKG: NSR w/ BBB - consistent with previous EKGs -TTE: Pending -UA (Straight Cath): Pending -Multiple documented episodes of Syncope in the past - previous reports reviewed -Positive Orthostatic BP measurements - will encourage non-pharmacologic measures at this time -Will hold sedating medications 2. YAZMIN, resolved -Cr: 1.46 > 1.08 -NS @ 110 ml/hr -Will reassess fluid status with AM labs - plan to DC IVF 3. BPH -Will continue home Finasteride regimen 4. Parkinson's Disease -Home medication regimen is Non-Formulary - will initiate Carbidopa/Levodopa 50/ 200 x2 PO TID 5. 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 Trops negative x3 with unremarkable AM labs. Will await results of UA and TTE. Plan for DC if all are unremarkable - consider outpatient follow-up for cardiac work-up if patient is amenable. Expected LOS < 24H. Addendum - Attending - Attending Attestation Date/Time: 11/04/19 [id number] I personally evaluated the patient and discussed the management with Dr. Bryan. I agree with the History, Examination, Assessment and Plan documented above with any addition or exceptions noted below. YAZMIN is improved with fluids. Echo is pending to further complete syncope workup. Pt has multiple admissions for fall/syncope. He notes he loses his balance due to the parkinsons. Once echo is taken, pt can d/c home as he is back to baseline but we stressed importance of f/u with PCP.
[2019-11-04] MEDS ORDERED: hydrALAZINE 10 MG TAB PO PRN (05:44)
[2019-11-04 06:42] LABS: Bacteria/HPF None Seen HPF (None Seen); Bilirubin Negative (Negative); Blood, Urine Negative (Negative); Clarity Clear (Clear); Glucose, Urine (Dipstick) Normal (Negative); Leukocyte Negative Leu/uL (Negative); Nitrite Negative (Negative); Protein, Urine (Dipstick) Negative (Neg-Trace); RBC/HPF 0-3 HPF (0-3); Squamous Epithelial 0-3 HPF (0-3); Urobilinogen Normal mg/dL (Less than 2); WBC/HPF 0-3 HPF (0-3)
[2019-11-04] MEDS ORDERED: Multivit, Therapeutic 1 TAB PO SCH (09:00)
[2019-11-04] MEDS ORDERED: Vitamin E 400 UNITS CAP PO SCH (09:00)
[2019-11-04] MEDS ORDERED: Enoxaparin Sodium 40 MG/0.4 ML SYRINGE SC SCH (09:00)
[2019-11-04] MEDS ORDERED: Aspirin 325 MG TAB PO SCH (09:00)
[2019-11-04] MEDS ORDERED: Finasteride 5 MG TAB PO SCH (09:00)
[2019-11-04] MEDS ORDERED: Famotidine 20 MG TAB PO SCH (09:00)
[2019-11-04] MEDS: Carbidopa/Levodopa CR 50-200 mg Tablet PO SCH ×2 (09:31→14:52)
[2019-11-04 15:54] VITALS: BP 169/87; TEMP 97.6
--- NOTE | 2019-11-05 05:38 | DIS ---
DATE OF ADMISSION: 11/03/2019 DATE OF DISCHARGE: 11/04/2019 RESIDENT: Luigi Bryan MD ADMITTING ATTENDING: Cornelio De La Paz MD DISCHARGE ATTENDING: Cornelio De La Paz MD CONSULTS: None. PROCEDURES: EKG, which showed normal sinus rhythm with a bundle branch block consistent with previous EKGs. Chest x-ray that was within normal limits and showed no acute findings. Transthoracic echocardiogram, which showed an ejection fraction estimated to be greater than 60% to 65% with E/A reversal noted suggestive of diastolic dysfunction. Normal right ventricular size and function. Left atrium is of normal size. Normal right atrium size. Mild mitral annular calcification present. Trace mitral regurgitation present. Aortic valve leaflets somewhat thick and trivial aortic regurgitation is noted. Mild tricuspid regurgitation. DISCHARGE MEDICATIONS: None. DISCONTINUED MEDICATIONS: 1. Aspirin 325 mg p.o. daily. 2. Carbidopa levodopa 50/200 two tabs p.o. t.i.d. 3. Lovenox 40 mg subcutaneous daily. 4. Famotidine 20 mg p.o. daily. 5. Finasteride 5 mg p.o. daily. 6. Multivitamin one tab p.o. daily. 7. Vitamin E 400 units p.o. daily. PRIMARY DIAGNOSIS: Syncopal episode, most likely secondary to Parkinson disease, weakness and worsening dementia, probable mechanical fall. SECONDARY DIAGNOSES: Acute kidney injury, benign prostatic hypertrophy, Parkinson disease, and hypertension. HISTORY OF PRESENT ILLNESS/HOSPITAL COURSE: The patient is a 79-year-old male with past medical history significant for Parkinson's, dementia, hypertension, chronic kidney disease type 3, history of bowel obstruction, benign prostatic hypertrophy, and frequent falls, who presents to the ED with his caregiver following a syncopal event at his home despite being A and O x3. During the initial evaluation, the patient was found to be a rather poor historian, who after became confused while answering questions, which demonstrated difficulty with word finding concentration, as such, much of the HPI was provided by the caregiver and from the ED attending physician. Per the patient, he gets weak and falls frequently. This episode was not unlike other episodes in the past that caused him to present to the ED with a frequency of approximately 1 to 2 times per month. The patient denied any prodromal symptoms prior to his fall, stating that he fell backward while walking from his living room into the bathroom with the use of a walker. He specifically stated that he did not trip or feel a sudden sensation of weakness in his legs nor did he experience any headache, changes in vision, nausea, vomiting, cough, shortness of breath, chest pain, palpitations, or abdominal pain. On further questioning, he endorsed mild dysuria over the last several days, but stated specifically that he had not been feeling febrile nor did he have symptoms of hematuria, new onset rashes or lesions, bloody stools or dark stools. He states that he did not remember the time between the fall and the ambulance arriving. Per the ED attending physician, the patient had a chest x-ray, it was within normal limits and EKG that was read as normal sinus rhythm with a bundle branch block consistent with previous EKGs. Laboratory analysis revealed a mild YAZMIN with a creatinine of 1.46, but CBC and CMP were otherwise negative with initial troponin that was in the negative range. The patient was subsequently transferred to the telemetry floor, where he was placed on monitor and evaluated overnight. Troponin levels were trended, all of which were negative and morning labs were unremarkable. Transthoracic echocardiogram was performed with results noted elsewhere as there was no obvious cause to the patient's fall. His fall was most likely attributed to the multiple comorbidities that the patient has, predominantly Parkinson disease, weakness, dementia, and deconditioning. The patient was subsequently prepped for discharge prior to discharge. His vital signs were recorded as temperature 97.6, pulse 57, respiratory rate 12 per minute, O2 saturations 99% on room air, and blood pressure 169/87. LABORATORY ANALYSIS: Revealed white blood cell count of 4.7, hemoglobin 13.4, hematocrit 41.3, platelet count 121. Chem panel revealed a sodium of 137, potassium 4.2, chloride 108, carbon dioxide 21, BUN 24, creatinine 1.08, glucose 75, calcium 8.3, AST 17, ALT 7. Troponins were trended to be 0.023, 0.015, and 0.010. DISPOSITION: Stable. DISCHARGE INSTRUCTIONS: 1. Location: Home with assistance from primary caregivers. 2. Diet: Heart healthy and carbohydrate conscious. 3. Activity: The patient seems to be at high risk for falls and incredibly frail as such his activity should be limited to ambulate with assist. 4. Followup: The patient was advised to follow up with his primary care provider in one week or discuss his most recent hospitalization. Additionally, he was encouraged to discuss medication optimization and the need for additional cardiac workup. Job ID: [id number]
== END 2019-11-04 21:24 | disposition home or self-care (01) ==
LOC: ERS 13:31 → 2SW 16:17 → 2NO 21:13
PROVIDERS: ADMIT Student in an Organized Health Care Education/Training Program; ATTEND Student in an Organized Health Care Education/Training Program
DX: R55 Syncope and collapse (principal); G20 Parkinson's disease; F02.80 Dementia in other diseases classified elsewhere, unspecified severity, without behavioral disturbance, psychotic disturbance, mood disturbance, and anxiety; I12.9 Hypertensive chronic kidney disease with stage 1 through stage 4 chronic kidney disease, or unspecified chronic kidney disease; N18.3 Chronic kidney disease, stage 3 (moderate); N17.9 Acute kidney failure, unspecified; D63.1 Anemia in chronic kidney disease; N40.0 Benign prostatic hyperplasia without lower urinary tract symptoms; R53.1 Weakness; I45.4 Nonspecific intraventricular block; I08.3 Combined rheumatic disorders of mitral, aortic and tricuspid valves; Z79.82 Long term (current) use of aspirin; Z79.899 Other long term (current) drug therapy; Z88.1 Allergy status to other antibiotic agents; Z91.041 Radiographic dye allergy status
CPT/HCPCS: 80048; 80053; 81001; 84484 ×2; 85025 ×2; 93005; 93306; 96372; 97139 ×3; 97530; 99285; G0378 ×3; 36415; J1650

== ENCOUNTER 2019-11-07 10:04 | Emergency (ER) | payer MEDICARE, BC ==
--- NOTE | 2019-11-07 10:48 | RAD ---
PORTABLE CHEST: Date: 11/07/2019 HISTORY: Syncopal episode. COMPARISON: 03/24/19 study. FINDINGS: Heart size within normal limits. There are atherosclerotic changes of the aorta. The lungs are clear of infiltrates. There is gaseous distention of the abdomen. There are marked arthritic changes of the right shoulder. IMPRESSION: No active intrathoracic disease. POS: [facility]
[2019-11-07 11:12] LABS: #Eosinphils 0.1 thou/uL (0.0-0.7); #Lymphocytes 0.7 thou/uL (1.20-3.40); #Monocytes 0.3 thou/uL (0.11-0.59); #Neutrophils 3.9 thou/uL (1.40-6.50); %Basophils 0.8 % (0.0-1.0); %Eosinophils 2.7 % (0.0-10.0); %Lymphocytes 14.1 % (21.0-51.0); %Monocytes 6.2 % (0.0-10.0); %Neutrophils 76.1 % (42.0-75.0); Hemoglobin 14.6 g/dL (14.0-18.0); Mean Corpuscular HGB CONC 33.4 g/dL (32.0-36.0); Mean Corpuscular Hemoglobin 32.4 pg (27.0-31.0); Mean Corpuscular Volume 97.2 fL (78.0-98.0); Mean Platelet Volume 8.2 fL (7.4-10.4); Platelet Count 153 thou/uL (130-400); RBC Distribution Width 11.9 % (11.5-14.5); Red Blood Cell (RBC) Count 4.52 mill/uL (4.70-6.10); White Blood Cell (WBC) Count 5.1 thou/uL (4.8-10.8)
[2019-11-07 11:33] LABS: ALT (SGPT) Less than 7 U/L (8-55); AST (SGOT) 18 U/L (5-34); Alkaline Phosphatase 58 U/L (40-110); Anion Gap 12 mmol/L (10-20); BUN (Urea Nitrogen) 29 mg/dL (8.4-25.7); Bilirubin, Total 0.5 mg/dL (0.2-1.2); Calc. Creatinine Clearance 0 mL/min (70-130); Calcium 8.8 mg/dL (7.8-10.44); Carbon Dioxide 26 mmol/L (23-31); Chloride 109 mmol/L (98-107); Estimated GFR-MDRD 48; Globulin 2.2 g/dL (2.4-3.5); Glucose 96 mg/dL (83-110); Potassium 4.1 mmol/L (3.5-5.1); Protein, Total 6.2 g/dL (5.8-8.1); Sodium 143 mmol/L (136-145)
[2019-11-07 13:20] LABS: Bilirubin Negative (Negative); Blood, Urine Negative (Negative); Clarity Clear (Clear); Glucose, Urine (Dipstick) Normal (Negative); Leukocyte Negative Leu/uL (Negative); Nitrite Negative (Negative); Protein, Urine (Dipstick) 10 mg/dL (Neg-Trace); Urobilinogen Normal mg/dL (Less than 2)
== END 2019-11-07 14:05 | disposition home or self-care (01) ==
LOC: ERS 10:04
DX: R55 Syncope and collapse (principal); I12.9 Hypertensive chronic kidney disease with stage 1 through stage 4 chronic kidney disease, or unspecified chronic kidney disease; D64.9 Anemia, unspecified; F03.90 Unspecified dementia, unspecified severity, without behavioral disturbance, psychotic disturbance, mood disturbance, and anxiety; G20 Parkinson's disease; Z79.899 Other long term (current) drug therapy; Z79.82 Long term (current) use of aspirin
CPT/HCPCS: 36415; 51701; 71045; 80053; 81003; 84484; 85025; 93005